=== PATIENT | female | born 1985 | race Caucasian/White ===

== ENCOUNTER 2018-01-09 09:41 | Emergency (ER) | payer SELFPAY ==
[2018-01-09] MEDS ORDERED: PANTOPRAZOLE 40 MG INJ ONE (10:20)
[2018-01-09 10:50] LABS: Absolute Lymphocytes (CBC) 1.4 K/uL (0.7-4.9); Absolute Monocytes 0.5 K/uL (0.1-1.3); Absolute Neutrophil 4.3 K/uL (1.8-8.0); Basophils % 0.1 % (0-1.3); Eosinophils % 1.5 % (0-4.4); Hematocrit 37.9 % (36.0-45.0); Lymphocytes % 22.1 % (15.3-44.8); MCH 30.7 pg (27.0-35.0); MCV 89.1 fL (80-100); MPV 10.5 fL (7.6-11.3); Monocytes % 8.1 % (3.3-12.3); RBC Red Blood Cell Count 4.25 M/uL (3.86-4.86)
[2018-01-09 11:02] LABS: ALT/SGPT 25 U/L (12-78); AST/SGOT 19 U/L (15-37); Albumin 3.7 g/dL (3.4-5.0); Alkaline Phosphatase 61 U/L (45-117); Amylase Level 43 U/L (25-115); BUN Blood Urea Nitrogen 18 mg/dL (7-18); Bicarbonate 30 mmol/L (21-32); Bilirubin Direct < 0.1 mg/dL (0-0.2); Bilirubin Total 0.3 mg/dL (0.2-1.0); Glucose Level 91 mg/dL (74-106); Lipase 94 U/L (73-393); Potassium 3.9 mmol/L (3.5-5.1); Protein, Total 7.3 g/dL (6.4-8.2); Sodium Level 142 mmol/L (136-145)
--- NOTE | 2018-01-09 11:09 | RAD REPORT ---
EXAM DESCRIPTION: US - Abdomen Exam Limited - 01/09/2018 10:31 am CLINICAL HISTORY: Abdominal pain. COMPARISON: None. FINDINGS: The gallbladder wall is not thickened. A gallstone is not seen. The biliary tree is normal caliber. IMPRESSION: Unremarkable gallbladder ultrasound.
--- NOTE | 2018-01-09 11:50 | EDPHYS ---
Physician Documentation [facility] Name: Al Verma Age: 32 yrs Sex: Female : 1985 Arrival Date: 01/09/2018 Time: 09:44 Bed 27 Private MD: None, None ED Physician Steve Escobar HPI: 01/09 10:59 This 32 yrs old Female presents to ER via Ambulatory with complaints of kb Abdominal Pain. 10:59 The patient presents with abdominal pain in the right upper quadrant. kb 11:32 Onset: The symptoms/episode began/occurred 4 day(s) ago. The symptoms radiate to the kb right shoulder. Associated signs and symptoms: none. The symptoms are described as burning, sharp. Modifying factors: The symptoms are alleviated by nothing, the symptoms are aggravated by food, laying flat. Severity of pain: At its worst the pain was moderate in the emergency department the pain is unchanged. The patient has not experienced similar symptoms in the past. The patient has not recently seen a physician. Pt states she started having RUQ pain that started Tuesday after eating sushi. States the pain started as epigastric pain that burned up through her chest like indigestion. The pain comes and goes, is worse after eating, when laying flat or when taking a deep breath. Also reports pain to right shoulder. . 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 - Social history:: Smoking status: Patient uses tobacco products, smokes one pack cigarettes per day. - Ebola Screening: : No symptoms or risks identified at this time. ROS: 11:47 Constitutional: Negative for fever, chills, and weight loss, ENT: Negative for injury, kb pain, and discharge, Neck: Negative for injury, pain, and swelling, Cardiovascular: Negative for chest pain, palpitations, and edema, Respiratory: Negative for shortness of breath, cough, wheezing, and pleuritic chest pain, Back: Negative for injury and pain, MS/Extremity: Negative for injury and deformity, Skin: Negative for injury, rash, and discoloration, Neuro: Negative for headache, weakness, numbness, tingling, and seizure. 11:47 Abdomen/GI: Positive for abdominal pain, Negative for nausea, vomiting, and diarrhea, constipation, abdominal cramps, abdominal distension, anorexia. Exam: 11:47 Constitutional: This is a well developed, well nourished patient who is awake, alert, kb and in no acute distress. Head/Face: Normocephalic, atraumatic. Chest/axilla: Normal chest wall appearance and motion. Nontender with no deformity. No lesions are appreciated. Cardiovascular: Regular rate and rhythm with a normal S1 and S2. No gallops, murmurs, or rubs. Normal PMI, no JVD. No pulse deficits. Respiratory: Lungs have equal breath sounds bilaterally, clear to auscultation and percussion. No rales, rhonchi or wheezes noted. No increased work of breathing, no retractions or nasal flaring. Back: No spinal tenderness. No costovertebral tenderness. Full range of motion. Skin: Warm, dry with normal turgor. Normal color with no rashes, no lesions, and no evidence of cellulitis. MS/ Extremity: Pulses equal, no cyanosis. Neurovascular intact. Full, normal range of motion. Neuro: Awake and alert, GCS 15, oriented to person, place, time, and situation. Cranial nerves II-XII grossly intact. Motor strength 5/5 in all extremities. Sensory grossly intact. Cerebellar exam normal. Normal gait. 11:47 Abdomen/GI: Inspection: abdomen appears normal, Bowel sounds: normal, in all quadrants, Palpation: soft, in all quadrants, nontender, in the left upper quadrant, right lower quadrant and left lower quadrant, moderate abdominal tenderness, in the right upper quadrant. Vital Signs: 09:53 BP 114 / 77; Pulse 90; Resp 16 S; Temp 98.3(O); Pulse Ox 99% on R/A; Weight 68.04 kg 7 (R); Height 5 ft. 10 in. (177.80 cm) (R); Pain 7/10; 11:33 BP 115 / 83; Pulse 86; Resp 19; Pulse Ox 99% on R/A; aj 09:53 Body Mass Index 21.52 (68.04 kg, 177.80 cm) jl7 MDM: 10:03 Patient medically screened. kb 11:47 Data reviewed: vital signs, nurses notes. Data interpreted: Pulse oximetry: on room air kb is 99 %. Interpretation: normal. 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 11:50 ED course: Pt reports symptoms resolved after protonix. . kb 01/09 10:10 Order name: Amylase, Serum; Complete Time: 11: kb 01/09 10:10 Order name: Basic Metabolic Panel; Complete Time: : kb 01/09 10:10 Order name: CBC with Diff; Complete Time: : kb 01/09 10:10 Order name: Hepatic Function; Complete Time: 11: kb 01/09 10:10 Order name: Lipase; Complete Time: 11: kb 01/09 11:18 Order name: Urine Dipstick--Ancillary (enter results) ag 01/09 10:10 Order name: Urine Test (obtain specimen); Complete Time: 10:34 kb 01/09 10:10 Order name: IV Saline Lock; Complete Time: 10:34 kb 01/09 10:10 Order name: Labs collected and sent; Complete Time: 10:34 kb 01/09 10:10 Order name: Urine Dipstick-Ancillary (obtain specimen); Complete Time: 10:34 kb 01/09 10:10 Order name: US Abdomen Limited; Complete Time: 11:10 kb 01/09 11:18 Order name: Urine --Ancillary (enter results) ag Administered Medications: 10:33 Drug: ProTONIX 40 mg Route: IVP; Site: right forearm; aj 11:23 Follow up: Response: No adverse reaction aj Disposition: 01/10 11:17 Co-signature as Attending Physician, Steve Escobar MD I agree with the assessment and angelique plan of care. Disposition: 01/09/18 11:49 Discharged to Home. Impression: Upper abdominal pain, unspecified. - Condition is Stable. - Discharge Instructions: Abdominal Pain, Adult, [id number]. - Prescriptions for Protonix 40 mg Oral Tablet - take 1 tablet by ORAL route once daily; 30 tablet. - Medication Reconciliation Form, Thank You Letter, Antibiotic Education, Prescription Opioid Use form. - Follow up: Emergency Department; When: As needed; Reason: Worsening of condition. Follow up: Private Physician; When: 2 - 3 days; Reason: Recheck today's complaints, Continuance of care, Re-evaluation by your physician. Signatures: Dispatcher [employer] EDAshley Nunez, JHON-C JHON-Kenya Haney, RN RN Steve Reno MD MD cha Leal, Jahala, RN RN jl7 Corrections: (The following items were deleted from the chart) 01/09 12:11 11:49 01/09/2018 11:49 Discharged to Home. Impression: Upper abdominal pain, aj unspecified. Condition is Stable. Forms are Medication Reconciliation Form, Thank You Letter, Antibiotic Education, Prescription Opioid Use. Follow up: Emergency Department; When: As needed; Reason: Worsening of condition. Follow up: Private Physician; When: 2 - 3 days; Reason: Recheck today's complaints, Continuance of care, Re-evaluation by your physician. kb
--- NOTE | 2018-01-09 11:50 | ER ---
Nurse's Notes [facility] Name: Al Verma Age: 32 yrs Sex: Female : 1985 Arrival Date: 01/09/2018 Time: 09:44 Bed 27 Private MD: None, None Diagnosis: Upper abdominal pain, unspecified Presentation: 01/09 09:47 Presenting complaint: Patient states: C/o RUQ pain x 3 days, ate sushi on Tuesday and it jl7 started hurting after that. Denies N/V, reports diarrhea on Tuesday morning, none since then. Pt noted to be drinking soda and eating donuts, instructed not to eat or drink anything else until the ERP says it's ok. Transition of care: patient was not received from another setting of care. Onset of symptoms was January 06, 2018. Risk Assessment: Do you want to hurt yourself or someone else? Patient reports no desire to harm self or others. Initial Sepsis Screen: Does the patient meet any 2 criteria? No. Patient's initial sepsis screen is negative. Does the patient have a suspected source of infection? No. Patient's initial sepsis screen is negative. Care prior to arrival: None. 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 - Social history:: Smoking status: Patient uses tobacco products, smokes one pack cigarettes per day. - Ebola Screening: : No symptoms or risks identified at this time. Screenin:33 Abuse screen: Denies threats or abuse. Denies injuries from another. Nutritional aj screening: No deficits noted. Tuberculosis screening: No symptoms or risk factors identified. Fall Risk None identified. Assessment: 10:14 General: Appears in no apparent distress. comfortable, Behavior is calm, cooperative, aj appropriate for age. Pain: Complains of pain in epigastric area and right upper quadrant. Neuro: Level of Consciousness is awake, alert, obeys commands, Oriented to person, place, time, situation, Appropriate for age. Respiratory: Airway is patent Respiratory effort is even, unlabored, Respiratory pattern is regular, symmetrical. GI: Abdomen is flat, Bowel sounds present X 4 quads. Abd is soft and non tender X 4 quads. Derm: Skin is intact, is healthy with good turgor, Skin is pink, warm \T\ dry. normal. 12:09 Reassessment: Patient appears in no apparent distress at this time. No changes from aj previously documented assessment. Patient and/or family updated on plan of care and expected duration. Pain level reassessed. Patient is alert, oriented x 3, equal unlabored respirations, skin warm/dry/pink. Patient states feeling better. Patient states symptoms have improved. Vital Signs: 09:53 BP 114 / 77; Pulse 90; Resp 16 S; Temp 98.3(O); Pulse Ox 99% on R/A; Weight 68.04 kg jl7 (R); Height 5 ft. 10 in. (177.80 cm) (R); Pain 7/10; 11:33 BP 115 / 83; Pulse 86; Resp 19; Pulse Ox 99% on R/A; aj 09:53 Body Mass Index 21.52 (68.04 kg, 177.80 cm) jl7 ED Course: 09:44 Patient arrived in ED. mr 09:44 None, None is Private Physician. mr 09:52 Triage completed. jl7 09:53 Arm band placed on right wrist. jl7 10:03 Ashley Snowden FNP-C [facility]. kb 10:03 Steve Escobar MD is Attending Physician. kb 10:14 Kenya Villavicencio, NICKIE is Primary Nurse. aj 10:27 Ultrasound completed. hr 10:31 US Abdomen Limited In Process Unspecified. EDMS 10:33 Patient has correct armband on for positive identification. aj 10:33 Inserted saline lock: 22 gauge in right forearm, using aseptic technique. Blood aj collected. 11:26 Urine --Ancillary (enter results) Sent. aj 12:09 No provider procedures requiring assistance completed. IV discontinued, intact, aj bleeding controlled, No redness/swelling at site. Pressure dressing applied. Administered Medications: 10:33 Drug: ProTONIX 40 mg Route: IVP; Site: right forearm; aj 11:23 Follow up: Response: No adverse reaction aj Outcome: 11:49 Discharge ordered by . xiomara 12:09 Discharged to home ambulatory, with family. aj 12:09 Condition: good 12:09 Discharge instructions given to patient, Instructed on discharge instructions, follow up and referral plans. medication usage, Demonstrated understanding of instructions, follow-up care, medications, Prescriptions given X 1. 12:11 Patient left the ED. aj Signatures: Dispatcher [employer] EDMS Ashley Snowden, CAREER TECHNICAL EDUCATION TEACHER-C CAREER TECHNICAL EDUCATION TEACHER-Kenya Haney, RN RN Althea Bauer mr Nirmala Almanza Jahala, RN RN jl7
[2018-01-09 12:35] LABS: Urine Blood NEGATIVE (NEG); Urine Glucose NEGATIVE (NEG); Urine Protein NEGATIVE (NEG); Urine Specific Gravity >1.030 (1.005-1.030); Urine pH 5.5 (5.0-7.0)
== END 2018-01-09 12:11 | disposition home or self-care (01) ==
LOC: ER 09:41
DX: R10.11 Right upper quadrant pain (principal); F17.210 Nicotine dependence, cigarettes, uncomplicated; F31.9 Bipolar disorder, unspecified; Z88.2 Allergy status to sulfonamides
CPT/HCPCS: 36415; 76705; 80048; 80076; 81003; 81025; 82150; 83690; 85025; 96374; 99284; C9113

== ENCOUNTER 2018-02-06 10:40 | Emergency (ER) | payer SELFPAY ==
[2018-02-06 11:43] LABS: Urine Blood NEGATIVE (NEG); Urine Glucose NEGATIVE (NEG); Urine Protein NEGATIVE (NEG); Urine Specific Gravity >1.030 (1.005-1.030)
[2018-02-06 11:56] LABS: ALT/SGPT 23 U/L (12-78); AST/SGOT 11 U/L (15-37); Albumin 3.9 g/dL (3.4-5.0); Alkaline Phosphatase 70 U/L (45-117); BUN Blood Urea Nitrogen 19 mg/dL (7-18); Bicarbonate 30 mmol/L (21-32); Bilirubin Direct 0.1 mg/dL (0-0.2); Bilirubin Total 0.4 mg/dL (0.2-1.0); Glucose Level 85 mg/dL (74-106); Lipase 118 U/L (73-393); Potassium 3.7 mmol/L (3.5-5.1); Protein, Total 7.5 g/dL (6.4-8.2); Sodium Level 142 mmol/L (136-145)
[2018-02-06 11:59] LABS: Absolute Lymphocytes (CBC) 1.3 K/uL (0.7-4.9); Absolute Monocytes 0.4 K/uL (0.1-1.3); Absolute Neutrophil 4.5 K/uL (1.8-8.0); Eosinophils % 0.1 % (0-4.4); Hematocrit 39.1 % (36.0-45.0); Lymphocytes % 20.6 % (15.3-44.8); MCH 30.6 pg (27.0-35.0); MCV 88.5 fL (80-100); MPV 10.2 fL (7.6-11.3); Monocytes % 6.7 % (3.3-12.3); RBC Red Blood Cell Count 4.42 M/uL (3.86-4.86)
--- NOTE | 2018-02-06 12:23 | RAD REPORT ---
EXAM DESCRIPTION: CT - Abdomen Pelvis W Contrast - 02/06/2018 12:11 pm CLINICAL HISTORY: Abdominal pain COMPARISON: None. TECHNIQUE: Biphasic, helical CT imaging of the abdomen and pelvis was performed following 100 ml non -ionic IV contrast. Oral contrast was given. All CT scans are performed using dose optimization technique as appropriate and may include automated exposure control or mA/KV adjustment according to patient size. FINDINGS: No suspicious findings in the lung bases. The liver, spleen, and pancreas show no suspicious findings. Gallbladder and biliary tree are also wi thout suspicious finding. Symmetric renal function is seen with no hydronephrosis or suspicious renal mass. Renal parenchymal e nhancement is slightly heterogeneous but no convincing evidence for pyelonephritis or other active re nal parenchymal process. Urinary bladder is contracted. No bladder calculus. Uterus is enlarged and lobulated. There are numerous small hyperdense areas within the myometrium. Mo st are 8-15 mm in size. Largest is lateral right fundus a 3.2 cm in size. Right ovary is unremarkable . In the left adnexa there is a 5.2 centimeter thin-walled cyst. This is probably a benign ovarian cy st but is relatively large. Mural nodule, septation calcification component. Stage component. Mild di latation of the left fallopian tube is suspected as well. No evidence for cyst rupture or hemorrhage. No dilated bowel loops or bowel wall thickening. Moderate stool volume is present throughout otherwis e unremarkable colon. No appendicitis findings. No free air, free fluid or inflammatory stranding. N o hernia, mass or bulky lymphadenopathy. No adrenal abnormality. No suspicious bony findings. IMPRESSION: A 5.2 centimeter thin-walled homogeneous fluid attenuation cyst or mass is present in th e left adnexa. Left fallopian tube appears to be mildly dilated as well. No cyst hemorrhage or rupt ure. The dominant mass is most likely a benign ovarian or paraovarian cyst. Size does warrant ongoing teresita toring. Fallopian tube dilatation is likely chronic. PID or other active process is unlikely. Enlarged bulky multi fibroid uterus. No acute GI or process. There is moderate stool volume filling the colon.
--- NOTE | 2018-02-06 13:04 | ER ---
Nurse's Notes [facility] Name: Al Verma Age: 32 yrs Sex: Female : 1985 Arrival Date: 02/06/2018 Time: 10:43 Bed 18 Private MD: None, None Diagnosis: Unspecified abdominal pain;Left ovarian cyst;Uterine fibroids Presentation: 02/06 10:58 Presenting complaint: Patient states: RUQ pain that began last night. Pt denies N/V/D. aa5 Pt states "I was seen here about a month ago and they checked my gallbladder but they couldn't find anything wrong". Transition of care: patient was not received from another setting of care. Onset of symptoms was January 2018. Risk Assessment: Do you want to hurt yourself or someone else? Patient reports no desire to harm self or others. Initial Sepsis Screen: Does the patient meet any 2 criteria? No. Patient's initial sepsis screen is negative. Does the patient have a suspected source of infection? No. Patient's initial sepsis screen is negative. Care prior to arrival: None. 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 - Social history:: Smoking status: Patient uses tobacco products, smokes one pack cigarettes per day. - Ebola Screening: : No symptoms or risks identified at this time. Screenin:36 Abuse screen: Denies threats or abuse. Denies injuries from another. Nutritional jl7 screening: No deficits noted. Tuberculosis screening: No symptoms or risk factors identified. Fall Risk IV access (20 points). Total Ma Fall Scale indicates No Risk (0-24 pts). Assessment: 11:15 General: Appears in no apparent distress. uncomfortable, Behavior is calm, cooperative, jl7 appropriate for age. Pain: Complains of pain in right upper quadrant Pain radiates to right mid back Pain currently is 6 out of 10 on a pain scale. Quality of pain is described as aching. Neuro: Level of Consciousness is awake, alert, obeys commands, Oriented to person, place, time, situation. Cardiovascular: Patient's skin is warm and dry. Respiratory: Airway is patent Respiratory effort is even, unlabored, Respiratory pattern is regular, symmetrical. GI: Abdomen is round non-distended, Bowel sounds present X 4 quads. Abd is soft X 4 quads Abdomen is tender to palpation in right upper quadrant and right lower quadrant. : No signs and/or symptoms were reported regarding the genitourinary system. EENT: No signs and/or symptoms were reported regarding the EENT system. Derm: Skin is pink, warm \\T\\ dry. Musculoskeletal: No signs and/or symptoms reported regarding the musculoskeletal system. 12:15 Reassessment: No changes from previously documented assessment. Patient and/or family jl7 updated on plan of care and expected duration. Pain level reassessed. Patient is alert, oriented x 3, equal unlabored respirations, skin warm/dry/pink. Vital Signs: 10:59 BP 121 / 74; Pulse 85; Resp 18 S; Temp 97.0(TE); Pulse Ox 98% on R/A; Weight 84.82 kg aa5 (R); Height 5 ft. 10 in. (177.80 cm) (R); Pain 6/10; 11:36 BP 101 / 66; Pulse 81; Resp 16; Pulse Ox 97% ; Pain 6/10; jl7 13:15 BP 113 / 70; Pulse 80; Resp 16 S; Pulse Ox 98% on R/A; jl7 10:59 Body Mass Index 26.83 (84.82 kg, 177.80 cm) aa5 ED Course: 10:43 Patient arrived in ED. mr 10:43 None, None is Private Physician. mr 10:59 Triage completed. aa5 10:59 Arm band placed on. aa5 11:02 Rigo Mcfarland NP is PHCP. pm1 11:02 John Velez MD is Attending Physician. pm1 11:10 Sukhdev Foster RN is Primary Nurse. jl7 11:20 Initial lab(s) drawn, by ma, sent to lab. Inserted saline lock: 22 gauge in right hj forearm, using aseptic technique. Blood collected. 11:28 Urine collected: clean catch specimen, clear. mh5 11:36 Patient has correct armband on for positive identification. Placed in gown. Bed in low jl7 position. Call light in reach. Side rails up X 1. Pulse ox on. NIBP on. Warm blanket given. 11:56 Radiology exam delayed due to lab results not completed at this time. (BUN/Creatinine). 12:10 CT completed. Patient tolerated procedure well. Patient moved to CT via wheelchair. jg6 Patient moved back from CT. 12:11 Abdomen In Process Unspecified. EDNJ 13:01 Rob Reid MD is Referral Physician. pm1 13:15 No provider procedures requiring assistance completed. IV discontinued, intact, jl7 bleeding controlled, No redness/swelling at site. Pressure dressing applied. Administered Medications: 13:05 Drug: Pepcid 10 mg Route: IVP; Site: right forearm; jl7 13:18 Follow up: Response: No adverse reaction; Pain is decreased jl7 13:06 Drug: GI Cocktail without - (Maalox Suspension 30 ml, Lidocaine Liquid 2 % 15 jl7 ml) Route: PO; 13:18 Follow up: Response: No adverse reaction; Pain is decreased jl7 Outcome: 13:03 Discharge ordered by . pm1 13:15 Discharged to home ambulatory. jl7 13:15 Condition: stable 13:15 Discharge instructions given to patient, family, Instructed on discharge instructions, follow up and referral plans. Demonstrated understanding of instructions, follow-up care. 13:19 Patient left the ED. jl7 Signatures: Dispatcher [employer] EDNJ Althea Palm AlfredoDanielle, RN RN chay5 Mey Sin Bryson Dunham, RN Rigo Mendez, DIRECTOR OF SUSTAINABLE DESIGN DIRECTOR OF SUSTAINABLE DESIGN [facility] Althea Campbell Sukhdev Mcelroy RN RN jl7 Kaitlin Hernandez [facility]
--- NOTE | 2018-02-06 13:04 | EDPHYS ---
Physician Documentation [facility] Name: Al Verma Age: 32 yrs Sex: Female : 1985 Arrival Date: 02/06/2018 Time: 10:43 Bed 18 Private MD: None, None ED Physician John Velez HPI: 02/06 12:00 This 32 yrs old Female presents to ER via Ambulatory with complaints of pm1 Abdominal Pain. 12:00 The patient presents with abdominal pain in the right upper quadrant. Onset: The pm1 symptoms/episode began/occurred yesterday. The symptoms do not radiate. Associated signs and symptoms: Pertinent negatives: nausea, vomiting, and diarrhea, chest pain, shortness of breath. The symptoms are described as achy. Modifying factors: The symptoms are alleviated by nothing, the symptoms are aggravated by food, onset after eating pizza last night. Severity of pain: in the emergency department the pain has improved. The patient has experienced similar episodes in the past, a few times, today's symptoms are similar, prior ER visit for abdominal pain last month. 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 - Social history:: Smoking status: Patient uses tobacco products, smokes one pack cigarettes per day. - Ebola Screening: : No symptoms or risks identified at this time. ROS: 12:00 Constitutional: Negative for fever, chills, and weight loss, Eyes: Negative for injury, pm1 pain, redness, and discharge, ENT: Negative for injury, pain, and discharge, Neck: Negative for injury, pain, and swelling, Cardiovascular: Negative for chest pain, palpitations, and edema, Respiratory: Negative for shortness of breath, cough, wheezing, and pleuritic chest pain, Back: Negative for injury and pain. 12:00 : Negative for injury, bleeding, discharge, and swelling, MS/Extremity: Negative for injury and deformity, Skin: Negative for injury, rash, and discoloration, Neuro: Negative for headache, weakness, numbness, tingling, and seizure. 12:00 Abdomen/GI: Positive for abdominal pain, Negative for nausea, vomiting, and diarrhea. Exam: 12:00 Constitutional: This is a well developed, well nourished patient who is awake, alert, pm1 and in no acute distress. Head/Face: Normocephalic, atraumatic. Eyes: Pupils equal round and reactive to light, extra-ocular motions intact. Lids and lashes normal. Conjunctiva and sclera are non-icteric and not injected. Cornea within normal limits. Periorbital areas with no swelling, redness, or edema. ENT: Nares patent. No nasal discharge, no septal abnormalities noted. Tympanic membranes are normal and external auditory canals are clear. Oropharynx with no redness, swelling, or masses, exudates, or evidence of obstruction, uvula midline. Mucous membranes moist. Neck: Trachea midline, no thyromegaly or masses palpated, and no cervical lymphadenopathy. Supple, full range of motion without nuchal rigidity, or vertebral point tenderness. No Meningismus. Chest/axilla: Normal chest wall appearance and motion. Nontender with no deformity. No lesions are appreciated. Cardiovascular: Regular rate and rhythm with a normal S1 and S2. No gallops, murmurs, or rubs. Normal PMI, no JVD. No pulse deficits. Respiratory: Lungs have equal breath sounds bilaterally, clear to auscultation and percussion. No rales, rhonchi or wheezes noted. No increased work of breathing, no retractions or nasal flaring. Back: No spinal tenderness. No costovertebral tenderness. Full range of motion. Skin: Warm, dry with normal turgor. Normal color with no rashes, no lesions, and no evidence of cellulitis. MS/ Extremity: Pulses equal, no cyanosis. Neurovascular intact. Full, normal range of motion. 12:00 Abdomen/GI: Inspection: abdomen appears normal, Bowel sounds: normal, Palpation: soft, mild abdominal tenderness, in the right upper quadrant, mass, is not appreciated, rebound tenderness, is not appreciated, Indicators: McBurney's point is not tender, Cesar's sign is negative, Rovsing's sign is negative, Obturator sign is negative, Psoas sign is negative. 12:00 Neuro: Orientation: is normal, Motor: is normal. Vital Signs: 10:59 BP 121 / 74; Pulse 85; Resp 18 S; Temp 97.0(TE); Pulse Ox 98% on R/A; Weight 84.82 kg aa5 (R); Height 5 ft. 10 in. (177.80 cm) (R); Pain 6/10; 11:36 BP 101 / 66; Pulse 81; Resp 16; Pulse Ox 97% ; Pain 6/10; jl7 13:15 BP 113 / 70; Pulse 80; Resp 16 S; Pulse Ox 98% on R/A; jl7 10:59 Body Mass Index 26.83 (84.82 kg, 177.80 cm) aa5 MDM: 11:03 Patient medically screened. pm1 13:00 Data reviewed: vital signs. Data interpreted: Pulse oximetry: on room air is 97 %. pm1 Interpretation: normal. Counseling: I had a detailed discussion with the patient and/or guardian regarding: the historical points, exam findings, and any diagnostic results supporting the discharge/admit diagnosis, lab results, radiology results, the need for outpatient follow up, an OB/Gyne specialist, uterine fibroid and left ovarian cyst, to return to the emergency department if symptoms worsen or persist or if there are any questions or concerns that arise at home. 13:30 ED course: Patient with improvement from GI cocktail, impression likely reflux disease pm1 or ulcer. Recommend follow up with GI. 02/06 11:02 Order name: Basic Metabolic Panel; Complete Time: 12:05 pm02/06 11:02 Order name: CBC with Diff; Complete Time: 12:05 pm1 02/06 11:02 Order name: Hepatic Function; Complete Time: 12:05 pm1 02/06 11:02 Order name: Lipase; Complete Time: 12:05 pm02/06 11:30 Order name: Urine Dipstick--Ancillary (enter results); Complete Time: 11:44 bd 02/06 11:30 Order name: Urine --Ancillary (enter results); Complete Time: 11:44 bd 02/06 11:02 Order name: Urine Test (obtain specimen); Complete Time: 11:24 pm02/06 11:02 Order name: IV Saline Lock; Complete Time: 11:24 pm1 02/06 11:02 Order name: Labs collected and sent; Complete Time: 11:24 pm02/06 11:02 Order name: Urine Dipstick-Ancillary (obtain specimen); Complete Time: 11:24 pm1 02/06 11:48 Order name: Abdomen ; Complete Time: 12:39 EDMS Administered Medications: 13:05 Drug: Pepcid 10 mg Route: IVP; Site: right forearm; jl7 13:18 Follow up: Response: No adverse reaction; Pain is decreased jl7 13:06 Drug: GI Cocktail without - (Maalox Suspension 30 ml, Lidocaine Liquid 2 % 15 jl7 ml) Route: PO; 13:18 Follow up: Response: No adverse reaction; Pain is decreased jl7 Disposition: 13:28 Co-signature as Attending Physician, John Velez MD. rn Disposition: 02/06/18 13:03 Discharged to Home. Impression: Unspecified abdominal pain, Left ovarian cyst, Uterine fibroids. - Condition is Stable. - Discharge Instructions: Abdominal Pain, Adult, Uterine Fibroids, Ovarian Cyst. - Medication Reconciliation Form, Thank You Letter, Antibiotic Education, Prescription Opioid Use form. - Follow up: Emergency Department; When: As needed; Reason: Worsening of condition. Follow up: Private Physician; When: 2 - 3 days; Reason: Recheck today's complaints, Continuance of care, Re-evaluation by your physician. Follow up: Rob Reid MD; When: 2 - 3 days; Reason: Recheck today's complaints, Continuance of care, Re-evaluation by your physician. - Problem is new. - Symptoms have improved. Signatures: Dispatcher [employer] EDND John Velez MD MD rn Calderon, Audri, RN RN aa5 Rigo Mcfarland NP MULTIPLE NEEDLE STITCHER pm1 Sukhdev Foster RN RN jl7 Corrections: (The following items were deleted from the chart) 11:48 11:31 Stone Protocol+CT.RAD.BRZ ordered. [facility] EDND 13:19 13:03 02/06/2018 13:03 Discharged to Home. Impression: Unspecified abdominal pain; Left jl7 ovarian cyst; Uterine fibroids. Condition is Stable. Forms are Medication Reconciliation Form, Thank You Letter, Antibiotic Education, Prescription Opioid Use. Follow up: Emergency Department; When: As needed; Reason: Worsening of condition. Follow up: Private Physician; When: 2 - 3 days; Reason: Recheck today's complaints, Continuance of care, Re-evaluation by your physician. Follow up: Rob Reid; When: 2 - 3 days; Reason: Recheck today's complaints, Continuance of care, Re-evaluation by your physician. Problem is new. Symptoms have improved. pm1
[2018-02-06] MEDS ORDERED: FAMOTIDINE 20 MG/2 ML VIAL IV ONE (13:12)
[2018-02-06] MEDS ORDERED: LIDOCAINE VISCOUS 2% SOLN 15 ML UDC ONE (13:12)
[2018-02-06] MEDS ORDERED: MAGNE/ALUM HYDROXD 30 ML UCUP ONE (13:12)
== END 2018-02-06 13:19 | disposition home or self-care (01) ==
LOC: ER 10:40
DX: N83.202 Unspecified ovarian cyst, left side (principal); D25.9 Leiomyoma of uterus, unspecified; F17.210 Nicotine dependence, cigarettes, uncomplicated; Z88.2 Allergy status to sulfonamides
CPT/HCPCS: 36415; 74177; 80048; 80076; 81003; 81025; 83690; 85025; 96374; 99284; Q9967

== ENCOUNTER 2018-11-02 13:29 | Emergency (ER) | payer SELFPAY ==
[2018-11-02] MEDS ORDERED: NA CHLORIDE 0.9% 1,000 ML ONE (14:28)
[2018-11-02] MEDS ORDERED: MAGNE/ALUM HYDROXD 30 ML UCUP ONE (14:28)
[2018-11-02] MEDS ORDERED: LIDOCAINE VISCOUS 2% SOLN 15 ML UDC ONE (14:28)
[2018-11-02] MEDS ORDERED: FAMOTIDINE 20 MG/2 ML VIAL IV ONE (14:28)
[2018-11-02 14:42] LABS: Urine Blood 1+ (NEG); Urine Glucose NEGATIVE (NEG); Urine Protein NEGATIVE (NEG); Urine Specific Gravity 1.025 (1.005-1.030); Urine pH 5.5 (5.0-7.0)
[2018-11-02 14:46] LABS: Absolute Lymphocytes (CBC) 1.3 K/uL (0.7-4.9); Absolute Monocytes 0.3 K/uL (0.1-1.3); Absolute Neutrophil 3.8 K/uL (1.8-8.0); Basophils % 0.2 % (0-1.3); Hematocrit 40.7 % (36.0-45.0); Lymphocytes % 23.8 % (15.3-44.8); MPV 10.1 fL (7.6-11.3); Monocytes % 5.9 % (3.3-12.3); RBC Red Blood Cell Count 4.57 M/uL (3.86-4.86)
[2018-11-02 15:27] LABS: ALT/SGPT 19 U/L (12-78); AST/SGOT 17 U/L (15-37); Albumin 4.1 g/dL (3.4-5.0); Alkaline Phosphatase 78 U/L (45-117); BUN Blood Urea Nitrogen 16 mg/dL (7-18); Bicarbonate 28 mmol/L (21-32); Bilirubin Direct 0.1 mg/dL (0-0.2); Bilirubin Total 0.6 mg/dL (0.2-1.0); Glucose Level 84 mg/dL (74-106); Lipase 77 U/L (73-393); Potassium 3.8 mmol/L (3.5-5.1); Protein, Total 7.7 g/dL (6.4-8.2); Sodium Level 142 mmol/L (136-145)
--- NOTE | 2018-11-02 15:37 | ER ---
Nurse's Notes [facility] Name: Al Verma Age: 33 yrs Sex: Female : 1985 Arrival Date: 11/02/2018 Time: 13:32 Bed 17 Private MD: Diagnosis: Abdominal tenderness;Functional dyspepsia;Urinary tract infection, site not specified Presentation: 11/02 13:35 Presenting complaint: Patient states: RUQ pain that started after patient ate. Patient aj states "I think it's my gallbladder again but I wasn't able to follow up. The last time they gave me a GI cocktail and it helped a lot.". Transition of care: patient was not received from another setting of care. Onset of symptoms was November 02, 2018. Risk Assessment: Do you want to hurt yourself or someone else? Patient reports no desire to harm self or others. Initial Sepsis Screen: Does the patient meet any 2 criteria? No. Patient's initial sepsis screen is negative. Does the patient have a suspected source of infection? No. Patient's initial sepsis screen is negative. Care prior to arrival: None. 13:35 Method Of Arrival: Ambulatory 13:35 Acuity: KRIS 3 aj Triage Assessment: 13:36 General: Appears in no apparent distress. comfortable, Behavior is calm, cooperative, aj appropriate for age. Pain: Complains of pain in epigastric area and right upper quadrant. Neuro: Level of Consciousness is awake, alert, obeys commands, Oriented to person, place, time, situation, Appropriate for age. Respiratory: Airway is patent Respiratory effort is even, unlabored, Respiratory pattern is regular, symmetrical. GI: Abdomen is flat. Derm: Skin is intact, is healthy with good turgor, Skin is pink, warm \\T\\ dry. normal. Historical: - Allergies: 13:36 Sulfa (Sulfonamide Antibiotics); aj - Home Meds: 13:36 oxcarbazepine Oral [Active]; aj - PMHx: 13:36 Bipolar disorder; aj - PSHx: 13:36 None; aj - Immunization history:: Adult Immunizations up to date. - Social history:: Smoking status: Patient/guardian denies using tobacco. - Ebola Screening: : Patient negative for fever greater than or equal to 101.5 degrees Fahrenheit, and additional compatible Ebola Virus Disease symptoms Patient denies exposure to infectious person Patient denies travel to an Ebola-affected area in the 21 days before illness onset No symptoms or risks identified at this time. - Family history:: not pertinent. Screenin:45 Abuse screen: Denies threats or abuse. Denies injuries from another. Nutritional bp screening: No deficits noted. Tuberculosis screening: No symptoms or risk factors identified. Fall Risk None identified. Assessment: 13:45 General: SEE TRIAGE NOTE. bp 13:45 GI: Bowel sounds present X 4 quads. Abd is soft and non tender. bp 16:01 Reassessment: PT D/C HOME AMBULATORY, DX WITH FUNCTIONAL DYSPEPSIA AND UTI. bp Vital Signs: 13:36 BP 126 / 71; Pulse 79; Resp 18; Temp 98.2; Pulse Ox 96% on R/A; Weight 89.81 kg; Height aj 5 ft. 10 in. (177.80 cm); 14:41 BP 94 / 69; Pulse 71; Resp 16; Temp 98.1(O); Pulse Ox 97% on R/A; mh5 15:29 BP 110 / 72; Pulse 70; Resp 16; Temp 97.9(O); Pulse Ox 97% on R/A; mh5 13:36 Body Mass Index 28.41 (89.81 kg, 177.80 cm) ED Course: 13:32 Patient arrived in ED. ds1 13:36 Triage completed. aj 13:36 Arm band placed on right wrist. Patient placed in an exam room. aj 13:46 Steve Escobar MD is Attending Physician. angelique 13:46 Patient has correct armband on for positive identification. Bed in low position. Call mh5 light in reach. Side rails up X 1. Warm blanket given. Pulse ox on. NIBP on. 13:52 Freedom Jeronimo, NICKIE is Primary Nurse. bp 14:30 Inserted saline lock: 22 gauge in right hand, using aseptic technique. Blood collected. bp 15:37 Mina Brooks MD is Referral Physician. angelique 16:02 No provider procedures requiring assistance completed. IV discontinued, intact, bp bleeding controlled, No redness/swelling at site. Pressure dressing applied. Administered Medications: 14:30 Drug: NS 0.9% 1000 ml Route: IV; Rate: 1 bolus; Site: right hand; bp 16:04 Follow up: IV Status: Completed infusion; IV Intake: 1000ml bp 14:30 Drug: GI Cocktail without - (Maalox Suspension 30 ml, Lidocaine Liquid 2 % 15 bp ml) Route: PO; 15:23 Follow up: Response: No adverse reaction bp 14:30 Drug: Pepcid 20 mg Route: IVP; Site: right hand; bp 15:22 Follow up: Response: No adverse reaction bp 15:30 Drug: Rocephin - (cefTRIAXone) 1 grams Route: IVPB; Infused Over: 30 mins; Site: right bp hand; 15:39 Follow up: IV Status: Completed infusion bp Intake: 16:04 IV: 1000ml; Total: 1000ml. bp Outcome: 15:37 Discharge ordered by . angelique 16:03 Discharged to home ambulatory, with family. bp 16:03 Condition: stable 16:03 Discharge instructions given to patient, Instructed on discharge instructions, follow up and referral plans. medication usage, Demonstrated understanding of instructions, follow-up care, medications, Prescriptions given X 4. 16:05 Patient left the ED. bp Signatures: Kenya Villavicencio, RN RN Steve Reno MD MD cha Sanford, Demi ds1 Althea Campbell 5 Freedom Jeronimo, RN RN bp
--- NOTE | 2018-11-02 15:37 | EDPHYS ---
Physician Documentation [facility] Name: Al Verma Age: 33 yrs Sex: Female : 1985 Arrival Date: 11/02/2018 Time: 13:32 Bed 17 Private MD: ED Physician Steve Escobar HPI: 11/02 14:03 This 33 yrs old Female presents to ER via Ambulatory with complaints of angelique Abdominal Pain. 14:03 The patient presents with abdominal pain in the upper abdomen. Onset: The angelique symptoms/episode began/occurred 1 day(s) ago. The symptoms do not radiate. Associated signs and symptoms: Pertinent positives: nausea. The symptoms are described as crampy. Modifying factors: The symptoms are alleviated by nothing, the symptoms are aggravated by food. Severity of pain: At its worst the pain was mild moderate in the emergency department the pain has improved mildly. The patient has experienced similar episodes in the past, a few times. Historical: - Allergies: 13:36 Sulfa (Sulfonamide Antibiotics); aj - Home Meds: 13:36 oxcarbazepine Oral [Active]; aj - PMHx: 13:36 Bipolar disorder; aj - PSHx: 13:36 None; aj - Immunization history:: Adult Immunizations up to date. - Social history:: Smoking status: Patient/guardian denies using tobacco. - Ebola Screening: : Patient negative for fever greater than or equal to 101.5 degrees Fahrenheit, and additional compatible Ebola Virus Disease symptoms Patient denies exposure to infectious person Patient denies travel to an Ebola-affected area in the 21 days before illness onset No symptoms or risks identified at this time. - Family history:: not pertinent. ROS: 14:03 Constitutional: Negative for fever, chills, and weight loss, Eyes: Negative for injury, angelique pain, redness, and discharge, ENT: Negative for injury, pain, and discharge, Neck: Negative for injury, pain, and swelling, Cardiovascular: Negative for chest pain, palpitations, and edema, Respiratory: Negative for shortness of breath, cough, wheezing, and pleuritic chest pain, Back: Negative for injury and pain, : Negative for injury, bleeding, discharge, and swelling, MS/Extremity: Negative for injury and deformity, Skin: Negative for injury, rash, and discoloration, Neuro: Negative for headache, weakness, numbness, tingling, and seizure, Psych: Negative for depression, anxiety, suicide ideation, homicidal ideation, and hallucinations, Allergy/Immunology: Negative for hives, rash, and allergies, Endocrine: Negative for neck swelling, polydipsia, polyuria, polyphagia, and marked weight changes, Hematologic/Lymphatic: Negative for swollen nodes, abnormal bleeding, and unusual bruising. 14:03 Abdomen/GI: Positive for abdominal pain, of the right upper quadrant. Exam: 14:03 Constitutional: This is a well developed, well nourished patient who is awake, alert, angelique and in no acute distress. Head/Face: Normocephalic, atraumatic. Eyes: Pupils equal round and reactive to light, extra-ocular motions intact. Lids and lashes normal. Conjunctiva and sclera are non-icteric and not injected. Cornea within normal limits. Periorbital areas with no swelling, redness, or edema. ENT: Nares patent. No nasal discharge, no septal abnormalities noted. Tympanic membranes are normal and external auditory canals are clear. Oropharynx with no redness, swelling, or masses, exudates, or evidence of obstruction, uvula midline. Mucous membranes moist. Neck: Trachea midline, no thyromegaly or masses palpated, and no cervical lymphadenopathy. Supple, full range of motion without nuchal rigidity, or vertebral point tenderness. No Meningismus. Chest/axilla: Normal chest wall appearance and motion. Nontender with no deformity. No lesions are appreciated. Cardiovascular: Regular rate and rhythm with a normal S1 and S2. No gallops, murmurs, or rubs. Normal PMI, no JVD. No pulse deficits. Respiratory: Lungs have equal breath sounds bilaterally, clear to auscultation and percussion. No rales, rhonchi or wheezes noted. No increased work of breathing, no retractions or nasal flaring. Back: No spinal tenderness. No costovertebral tenderness. Full range of motion. Skin: Warm, dry with normal turgor. Normal color with no rashes, no lesions, and no evidence of cellulitis. MS/ Extremity: Pulses equal, no cyanosis. Neurovascular intact. Full, normal range of motion. Neuro: Awake and alert, GCS 15, oriented to person, place, time, and situation. Cranial nerves II-XII grossly intact. Motor strength 5/5 in all extremities. Sensory grossly intact. Cerebellar exam normal. Normal gait. Psych: Awake, alert, with orientation to person, place and time. Behavior, mood, and affect are within normal limits. 14:03 Abdomen/GI: Inspection: abdomen appears normal, Bowel sounds: normal, Palpation: mild abdominal tenderness, in the epigastric area and right upper quadrant, Rectal exam: rectal tone Liver: no appreciated palpable abnormalities, Hernia: not appreciated. Vital Signs: 13:36 BP 126 / 71; Pulse 79; Resp 18; Temp 98.2; Pulse Ox 96% on R/A; Weight 89.81 kg; Height aj 5 ft. 10 in. (177.80 cm); 14:41 BP 94 / 69; Pulse 71; Resp 16; Temp 98.1(O); Pulse Ox 97% on R/A; mh5 15:29 BP 110 / 72; Pulse 70; Resp 16; Temp 97.9(O); Pulse Ox 97% on R/A; mh5 13:36 Body Mass Index 28.41 (89.81 kg, 177.80 cm) MDM: 13:46 Patient medically screened. [facility] 14:05 Data reviewed: vital signs, nurses notes, lab test result(s). [facility] 11/02 14:02 Order name: Basic Metabolic Panel; Complete Time: 15:36 [facility] [place] 11/02 14:02 Order name: CBC with Diff; Complete Time: 15:13 [facility] [place] 11/02 14:02 Order name: Creatinine for Radiology; Complete Time: 15:36 [facility] [place] 11/02 14:02 Order name: Hepatic Function; Complete Time: 15:36 [facility] [place] 11/02 14:02 Order name: Lipase; Complete Time: 15:36 [facility] [place] 11/02 14:02 Order name: Urine Culture [facility] 11/02 14:02 Order name: IV Saline Lock; Complete Time: 14:43 [facility] 11/02 14:02 Order name: Labs collected and sent; Complete Time: 14:43 [facility] [place] 11/02 14:37 Order name: Urine Dipstick--Ancillary (enter results); Complete Time: 15:13 11/02 14:37 Order name: Urine --Ancillary (enter results); Complete Time: 15:13 11/02 14:02 Order name: Urine Dipstick-Ancillary (obtain specimen); Complete Time: 14:43 [facility] 11/02 14:02 Order name: Urine Test (obtain specimen); Complete Time: 14:43 [facility] [place] Administered Medications: 14:30 Drug: NS 0.9% 1000 ml Route: IV; Rate: 1 bolus; Site: right hand; bp 16:04 Follow up: IV Status: Completed infusion; IV Intake: 1000ml bp 14:30 Drug: GI Cocktail without - (Maalox Suspension 30 ml, Lidocaine Liquid 2 % 15 bp ml) Route: PO; 15:23 Follow up: Response: No adverse reaction bp 14:30 Drug: Pepcid 20 mg Route: IVP; Site: right hand; bp 15:22 Follow up: Response: No adverse reaction bp 15:30 Drug: Rocephin - (cefTRIAXone) 1 grams Route: IVPB; Infused Over: 30 mins; Site: right bp hand; 15:39 Follow up: IV Status: Completed infusion bp Disposition: 11/02/18 15:37 Discharged to Home. Impression: Abdominal tenderness, Functional dyspepsia, Urinary tract infection, site not specified. - Condition is Stable. - Discharge Instructions: Abdominal Pain, Adult, Dysuria, Indigestion, Abdominal Pain, Adult, [id number]. - Prescriptions for Bentyl 20 mg Oral Tablet - take 1 tablet by ORAL route every 6 hours As needed; 20 tablet. Pepcid 20 mg Oral Tablet - take 1 tablet by ORAL route every 12 hours for 10 days; 20 tablet. Zofran 4 mg Oral Tablet - take 1 tablet by ORAL route every 12 hours As needed; 20 tablet. Cipro 250 mg Oral Tablet - take 1 tablet by ORAL route every 12 hours; 14 tablet. - Medication Reconciliation Form, Thank You Letter, Antibiotic Education, Prescription Opioid Use, Work release form form. - Follow up: Private Physician; When: 2 - 3 days; Reason: Recheck today's complaints, Continuance of care, Re-evaluation by your physician. Follow up: Mina Brooks MD; When: 2 - 3 days; Reason: Recheck today's complaints, Re-evaluation by your physician. - Problem is new. - Symptoms have improved. Signatures: Dispatcher [employer] Kenya Ornelas RN RN aj Anderson, Corey, MD MD cha Peltier, Brian, RN RN bp Corrections: (The following items were deleted from the chart) 15:37 15:37 11/02/2018 15:37 Discharged to Home. Impression: Abdominal tenderness; Functional angelique dyspepsia; Urinary tract infection, site not specified. Condition is Stable. Discharge Instructions: Abdominal Pain, Adult, Indigestion, Abdominal Pain, Adult, [id number], Dysuria. Prescriptions for Bentyl 20 mg Oral Tablet - take 1 tablet by ORAL route every 6 hours As needed; 20 tablet, Pepcid 20 mg Oral Tablet - take 1 tablet by ORAL route every 12 hours for 10 days; 20 tablet, Zofran 4 mg Oral Tablet - take 1 tablet by ORAL route every 12 hours As needed; 20 tablet, Cipro 250 mg Oral Tablet - take 1 tablet by ORAL route every 12 hours; 14 tablet. and Forms are Medication Reconciliation Form, Thank You Letter, Antibiotic Education, Prescription Opioid Use. Follow up: Private Physician; When: 2 - 3 days; Reason: Recheck today's complaints, Continuance of care, Re-evaluation by your physician. Problem is new. Symptoms have improved. [facility] 16:05 15:37 11/02/2018 15:37 Discharged to Home. Impression: Abdominal tenderness; Functional bp dyspepsia; Urinary tract infection, site not specified. Condition is Stable. Discharge Instructions: Abdominal Pain, Adult, Indigestion, Abdominal Pain, Adult, [id number], Dysuria. Prescriptions for Bentyl 20 mg Oral Tablet - take 1 tablet by ORAL route every 6 hours As needed; 20 tablet, Pepcid 20 mg Oral Tablet - take 1 tablet by ORAL route every 12 hours for 10 days; 20 tablet, Zofran 4 mg Oral Tablet - take 1 tablet by ORAL route every 12 hours As needed; 20 tablet, Cipro 250 mg Oral Tablet - take 1 tablet by ORAL route every 12 hours; 14 tablet. and Forms are Medication Reconciliation Form, Thank You Letter, Antibiotic Education, Prescription Opioid Use. Follow up: Private Physician; When: 2 - 3 days; Reason: Recheck today's complaints, Continuance of care, Re-evaluation by your physician. Follow up: Mina Brooks; When: 2 - 3 days; Reason: Recheck today's complaints, Re-evaluation by your physician. Problem is new. Symptoms have improved. [facility]
[2018-11-02] MEDS ORDERED: CEFTRIAXONE/SWI 1gm 1 GM/10 ML SYR ONE (15:40)
== END 2018-11-02 16:05 | disposition home or self-care (01) ==
LOC: ER 13:29
DX: K30 Functional dyspepsia (principal); N39.0 Urinary tract infection, site not specified; F31.9 Bipolar disorder, unspecified; Z88.2 Allergy status to sulfonamides
CPT/HCPCS: 36415; 80048; 80076; 81003; 81025; 83690; 85025; 87077; 87086; 87088; 87186; 96361; 96374; 96375; 99284; J0696; J7030

== ENCOUNTER 2019-04-03 13:21 | Emergency (ER) | payer SELFPAY ==
--- NOTE | 2019-04-03 14:29 | EDPHYS ---
Physician Documentation [facility] Name: Al Verma Age: 33 yrs Sex: Female : 1985 Arrival Date: 04/03/2019 Time: 13:25 Bed 11 Private MD: ED Physician Shawn Blackwell HPI: 04/03 14:22 This 33 yrs old Female presents to ER via Ambulatory with complaints of kb Dizziness, Shortness Of Breath, Urinary Problem, Lip sore, fatigue. 14:22 The patient presents with lightheadedness. Onset: The symptoms/episode began/occurred kb just prior to arrival. Context: occurred at work, occurred while the patient was working. Modifying factors: The symptoms are alleviated by eating, the symptoms are aggravated by nothing. Associated signs and symptoms: The patient has no apparent associated signs or symptoms. Severity of symptoms: At their worst the symptoms were moderate in the emergency department the symptoms have resolved. Patient's baseline: Neuro: alert and fully oriented, Motor: no deficits, Ambulation: walks without assistance, Speech: normal. The patient has not experienced similar symptoms in the past. Pt reports she has had 2 cold sores over the last month so she looked on web md and it said she may need an antibiotic to treat an underlying infection causing the cold sores. Reports she had a z-pack that her mother gave her so she started that this morning. Took first dose, went to work, ate 3 breakfast tacos and had some coffee. States she started feeling lightheaded, dizzy and was breathing fast at about 1030. She was taken to the office by safety and given a honey bun to eat. States she started feeling a little better, but still groggy so she was brought here. Ate a breakfast taco in the lobby and is feeling better. Pt reports frequent urination and family history of diabetes. . 14:26 The patient has not recently seen a physician. kb Historical: - Allergies: 13:32 Sulfa (Sulfonamide Antibiotics); hb - Home Meds: 13:32 oxcarbazepine Oral [Active]; hb - PMHx: 13:32 Bipolar disorder; hb - PSHx: 13:32 None; hb - Immunization history:: Adult Immunizations up to date. - Social history:: Smoking status: Patient uses tobacco products, smokes one pack cigarettes per day. - Ebola Screening: : No symptoms or risks identified at this time. ROS: 14:22 Constitutional: Negative for fever, chills, and weight loss, ENT: Negative for injury, kb pain, and discharge, Neck: Negative for injury, pain, and swelling, Cardiovascular: Negative for chest pain, palpitations, and edema, Respiratory: Negative for shortness of breath, cough, wheezing, and pleuritic chest pain, Abdomen/GI: Negative for abdominal pain, nausea, vomiting, diarrhea, and constipation, Back: Negative for injury and pain, MS/Extremity: Negative for injury and deformity, Skin: Negative for injury, rash, and discoloration. Reports cold sore Neuro: Negative for headache, weakness, numbness, tingling, and seizure. Exam: 14:22 Constitutional: This is a well developed, well nourished patient who is awake, alert, kb and in no acute distress. Head/Face: Normocephalic, atraumatic. ENT: Nares patent. No nasal discharge, no septal abnormalities noted. Tympanic membranes are normal and external auditory canals are clear. Oropharynx with no redness, swelling, or masses, exudates, or evidence of obstruction, uvula midline. Mucous membranes moist. Neck: Trachea midline, no thyromegaly or masses palpated, and no cervical lymphadenopathy. Supple, full range of motion without nuchal rigidity, or vertebral point tenderness. No Meningismus. Chest/axilla: Normal chest wall appearance and motion. Nontender with no deformity. No lesions are appreciated. Cardiovascular: Regular rate and rhythm with a normal S1 and S2. No gallops, murmurs, or rubs. Normal PMI, no JVD. No pulse deficits. Respiratory: Lungs have equal breath sounds bilaterally, clear to auscultation and percussion. No rales, rhonchi or wheezes noted. No increased work of breathing, no retractions or nasal flaring. Abdomen/GI: Soft, non-tender, with normal bowel sounds. No distension or tympany. No guarding or rebound. No evidence of tenderness throughout. Back: No spinal tenderness. No costovertebral tenderness. Full range of motion. MS/ Extremity: Pulses equal, no cyanosis. Neurovascular intact. Full, normal range of motion. Neuro: Awake and alert, GCS 15, oriented to person, place, time, and situation. Cranial nerves II-XII grossly intact. Motor strength 5/5 in all extremities. Sensory grossly intact. Cerebellar exam normal. Normal gait. 14:22 Skin: cold sore, bottom left lip. Vital Signs: 13:32 BP 124 / 86; Pulse 81; Resp 16; Temp 97.5; Pulse Ox 99% on R/A; Weight 72.57 kg; Height hb 5 ft. 10 in. (177.80 cm); Pain 6/10; 13:32 Body Mass Index 22.96 (72.57 kg, 177.80 cm) hb MDM: 13:38 Patient medically screened. kb 14:19 Data reviewed: vital signs, nurses notes. Data interpreted: Pulse oximetry: on room air kb is 99 %. Interpretation: normal. Counseling: I had a detailed discussion with the patient and/or guardian regarding: the historical points, exam findings, and any diagnostic results supporting the discharge/admit diagnosis, lab results, the need for outpatient follow up, a family practitioner, to return to the emergency department if symptoms worsen or persist or if there are any questions or concerns that arise at home. ED course: Pt educated on possible hypoglycemic episode causing lightheadedness/dizziness based on given history and BGL of 98 now. Pt educated on smaller, more frequent meals. Educated not to take antibiotics unless prescribed to her. Pt has no signs of bacterial infection that warrants continuation of z-pack. . 14:27 ED course: PT educated to follow up with PCP for Hemoglobin A1C check. Also discussed kb cold sores with pt. Educated that antibiotics will not cure them. Pt reports she started this job in February and has had 2 outbreaks since then. Educated that the stress of a new job could be the trigger. . 04/03 14:18 Order name: Urine Dipstick--Ancillary (enter results); Complete Time: 14:45 bd 04/03 14:18 Order name: Urine --Ancillary (enter results); Complete Time: 14:45 bd 04/03 13:56 Order name: Urine Dipstick-Ancillary (obtain specimen); Complete Time: 14:13 kb 04/03 13:56 Order name: Blood Glucose Level; Complete Time: 14:13 kb 04/03 14:21 Order name: Glucose, Ancillary Testing; Complete Time: 14:29 EDMS Administered Medications: No medications were administered Point of Care Testing: Blood Glucose: 14:10 Blood Glucose: 98 mg/dL; hb Ranges: Critical Glucose Levels:Adult <50 mg/dl or >400 mg/dl <40 mg/dl or >180 mg/dl Disposition: 04/04 07:19 Co-signature as Attending Physician, Shawn Blackwell MD I agree with the assessment and kdr plan of care. Disposition: 04/03/19 14:28 Discharged to Home. Impression: Herpesviral [herpes simplex] infections, Dizziness and giddiness. - Condition is Stable. - Discharge Instructions: Hypoglycemia, [id number], Dizziness, Cpsl-[id number], Cold Sore, [id number]. - Medication Reconciliation Form, Thank You Letter, Antibiotic Education, Prescription Opioid Use, Work release form form. - Follow up: Emergency Department; When: As needed; Reason: Worsening of condition. Follow up: Private Physician; When: 2 - 3 days; Reason: Recheck today's complaints, Continuance of care, Re-evaluation by your physician. Signatures: Dispatcher [employer] EDAshley Nunez, SHEMAR FERREIRA-Shawn Melton MD MD [facility] Ira Jaime RN RN ss Brittany Ortega RN RN Corrections: (The following items were deleted from the chart) 04/03 14:22 14:22 Constitutional: Negative for fever, chills, and weight loss, ENT: Negative for kb injury, pain, and discharge, Neck: Negative for injury, pain, and swelling, Cardiovascular: Negative for chest pain, palpitations, and edema, Respiratory: Negative for shortness of breath, cough, wheezing, and pleuritic chest pain, Abdomen/GI: Negative for abdominal pain, nausea, vomiting, diarrhea, and constipation, Back: Negative for injury and pain, MS/Extremity: Negative for injury and deformity, Skin: Negative for injury, rash, and discoloration, Neuro: Negative for headache, weakness, numbness, tingling, and seizure, kb 14:26 14:22 Pt reports she has had 2 cold sores over the last month so she looked on web md [place] and it said she may need an antibiotic to treat an underlying infection causing the cold sores. Reports she had a z-pack that her mother gave her so she started that this morning. Took first dose, went to work, ate 3 breakfast tacos and had some coffee. States she started feeling lightheaded, dizzy and was breathing fast at about 1030. She was taken to the office by safety and given a honey bun to eat. States she started feeling a little better, but still groggy so she was brought here. Ate a breakfast taco in the lobby and is feeling better. . kb 14:57 14:28 04/03/2019 14:28 Discharged to Home. Impression: Herpesviral [herpes simplex] ss infections; Dizziness and giddiness. Condition is Stable. Forms are Medication Reconciliation Form, Thank You Letter, Antibiotic Education, Prescription Opioid Use. Follow up: Emergency Department; When: As needed; Reason: Worsening of condition. Follow up: Private Physician; When: 2 - 3 days; Reason: Recheck today's complaints, Continuance of care, Re-evaluation by your physician. kb
--- NOTE | 2019-04-03 14:29 | ER ---
Nurse's Notes [facility] Name: Al Verma Age: 33 yrs Sex: Female : 1985 Arrival Date: 04/03/2019 Time: 13:25 Bed 11 Private MD: Diagnosis: Herpesviral [herpes simplex] infections;Dizziness and giddiness Presentation: 04/03 13:28 Presenting complaint: Cold sore x 2 days. Started self medicating with Zithromax hb yesterday. 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 Transition of care: patient was not received from another setting of care. Onset of symptoms was April 02, 2019. Risk Assessment: Do you want to hurt yourself or someone else? Patient reports no desire to harm self or others. Care prior to arrival: None. 13:28 Method Of Arrival: Ambulatory 13:28 Acuity: KRIS 4 hb 13:30 Initial Sepsis Screen: Does the patient meet any 2 criteria? No. Patient's initial hb sepsis screen is negative. Does the patient have a suspected source of infection? No. Patient's initial sepsis screen is negative. Triage Assessment: 13:30 General: Appears in no apparent distress. Behavior is calm, cooperative. Pain: hb Complains of pain in lower lip Pain currently is 6 out of 10 on a pain scale. Neuro: Level of Consciousness is awake, alert, obeys commands, Oriented to person, place, time, situation. Cardiovascular: Capillary refill < 3 seconds. Respiratory: Reports Airway is patent Respiratory effort is even, unlabored, Respiratory pattern is regular, symmetrical. Historical: - Allergies: 13:32 Sulfa (Sulfonamide Antibiotics); hb - Home Meds: 13:32 oxcarbazepine Oral [Active]; hb - PMHx: 13:32 Bipolar disorder; hb - PSHx: 13:32 None; hb - Immunization history:: Adult Immunizations up to date. - Social history:: Smoking status: Patient uses tobacco products, smokes one pack cigarettes per day. - Ebola Screening: : No symptoms or risks identified at this time. Screenin:30 Abuse screen: Denies threats or abuse. Denies injuries from another. Nutritional hb screening: No deficits noted. Tuberculosis screening: No symptoms or risk factors identified. Fall Risk None identified. Assessment: 13:30 General: see triage assessment. hb Vital Signs: 13:32 BP 124 / 86; Pulse 81; Resp 16; Temp 97.5; Pulse Ox 99% on R/A; Weight 72.57 kg; Height hb 5 ft. 10 in. (177.80 cm); Pain 6/10; 13:32 Body Mass Index 22.96 (72.57 kg, 177.80 cm) hb ED Course: 13:25 Patient arrived in ED. mr 13:32 Triage completed. hb 13:32 Arm band placed on. hb 13:34 Ashley Snowden FNP-C is PHCP. kb 13:34 Shawn Blackwell MD is Attending Physician. kb 13:40 Patient has correct armband on for positive identification. Call light in reach. hb 14:13 Brittany Ortega, RN is Primary Nurse. hb 14:55 No provider procedures requiring assistance completed. Patient did not have IV access ss during this emergency room visit. Administered Medications: No medications were administered Point of Care Testing: Blood Glucose: 14:10 Blood Glucose: 98 mg/dL; hb Ranges: Outcome: 14:28 Discharge ordered by MD. kb 14:55 Discharged to home ambulatory. ss 14:55 Condition: good 14:55 Discharge instructions given to patient, Instructed on discharge instructions, follow up and referral plans. Demonstrated understanding of instructions, follow-up care. 14:57 Patient left the ED. ss Signatures: Ashley Snowden FNP-C FNP-Ckb Dania PlamIra RN RN ss Brittany Ortega, RN RN hb
[2019-04-03 14:42] LABS: Urine Blood NEGATIVE (NEG); Urine Glucose NEGATIVE (NEG); Urine Protein NEGATIVE (NEG); Urine Specific Gravity >1.030 (1.005-1.030)
[2019-04-03 15:01] VITALS: BP 124/86; TEMP 97.5; O2SAT 99
== END 2019-04-03 14:57 | disposition home or self-care (01) ==
LOC: ER 13:21
DX: B00.9 Herpesviral infection, unspecified (principal); F31.9 Bipolar disorder, unspecified; F17.210 Nicotine dependence, cigarettes, uncomplicated; Z88.2 Allergy status to sulfonamides
CPT/HCPCS: 81003; 81025; 82947; 99282

== ENCOUNTER 2019-04-13 21:31 | Emergency (ER) | payer SELFPAY ==
--- NOTE | 2019-04-13 22:13 | EDPHYS ---
Physician Documentation [facility] Name: Al Verma Age: 33 yrs Sex: Female : 1985 Arrival Date: 04/13/2019 Time: 21:32 Bed 25 Private MD: ED Physician Juan Roy HPI: 04/14 06:46 This 33 yrs old Female presents to ER via Ambulatory with complaints of tw4 Weakness, Headache, Low Blood Sugar. 06:46 The patient or guardian reports hypoglycemia. Onset: The symptoms/episode tw4 began/occurred today. Associated signs and symptoms: Pertinent positives: nausea, headache , generalized weakness. The patient has not experienced similar symptoms in the past. 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 - Social history:: Smoking status: Patient uses tobacco products, smokes one pack cigarettes per day. - Ebola Screening: : No symptoms or risks identified at this time. ROS: 04/14 06:46 Constitutional: Negative for fever, chills, and weight loss, Eyes: Negative for injury, tw4 pain, redness, and discharge, Cardiovascular: Negative for chest pain, palpitations, and edema, Respiratory: Negative for shortness of breath, cough, wheezing, and pleuritic chest pain. Back: Negative for injury and pain, MS/Extremity: Negative for injury and deformity, Skin: Negative for injury, rash, and discoloration. Abdomen/GI: Positive for nausea, Negative for abdominal pain, nausea and vomiting, nausea, vomiting, and diarrhea. Neuro: Positive for weakness. Exam: 06:46 Constitutional: This is a well developed, well nourished patient who is awake, alert, tw4 and in no acute distress. Head/Face: Normocephalic, atraumatic. Chest/axilla: Normal chest wall appearance and motion. Nontender with no deformity. No lesions are appreciated. Cardiovascular: Regular rate and rhythm with a normal S1 and S2. No gallops, murmurs, or rubs. Normal PMI, no JVD. No pulse deficits. Respiratory: Lungs have equal breath sounds bilaterally, clear to auscultation and percussion. No rales, rhonchi or wheezes noted. No increased work of breathing, no retractions or nasal flaring. Abdomen/GI: Soft, non-tender, with normal bowel sounds. No distension or tympany. No guarding or rebound. No evidence of tenderness throughout. Back: No spinal tenderness. No costovertebral tenderness. Full range of motion. MS/ Extremity: Pulses equal, no cyanosis. Neurovascular intact. Full, normal range of motion. Neuro: Awake and alert, GCS 15, oriented to person, place, time, and situation. Cranial nerves II-XII grossly intact. Motor strength 5/5 in all extremities. Sensory grossly intact. Cerebellar exam normal. Normal gait. Vital Signs: 04/13 21:49 BP 119 / 75; Pulse 75; Resp 16; Temp 98.6; Pulse Ox 98% ; Weight 86.18 kg; Height 5 ft. rv 10 in. (177.80 cm); Pain 0/10; 21:49 Body Mass Index 27.26 (86.18 kg, 177.80 cm) rv MDM: 21:47 Patient medically screened. tw4 04/14 06:46 Data reviewed: vital signs, nurses notes. Counseling: I had a detailed discussion with [facility] the patient and/or guardian regarding: the historical points, exam findings, and any diagnostic results supporting the discharge/admit diagnosis, lab results. 04/13 21:52 Order name: Glucose, Ancillary Testing EDMS Administered Medications: No medications were administered Disposition: 04/13/19 22:12 Discharged to Home. Impression: Hypoglycemia, unspecified. - Condition is Stable. - Discharge Instructions: Hypoglycemia. - Medication Reconciliation Form, Thank You Letter, Antibiotic Education, Prescription Opioid Use, Work release form form. - Follow up: Private Physician; When: Upon discharge from the Emergency Department; Reason: Recheck today's complaints, Continuance of care. - Problem is new. - Symptoms have improved. Signatures: Dispatcher [employer] EDMS Juan Roy MD MD tw4 Jameel Velasquez RN RN rv Corrections: (The following items were deleted from the chart) 04/13 22:25 22:12 04/13/2019 22:12 Discharged to Home. Impression: Hypoglycemia, unspecified. rv Condition is Stable. Forms are Medication Reconciliation Form, Thank You Letter, Antibiotic Education, Prescription Opioid Use. Follow up: Private Physician; When: Upon discharge from the Emergency Department; Reason: Recheck today's complaints, Continuance of care. Problem is new. Symptoms have improved. tw4
--- NOTE | 2019-04-13 22:13 | ER ---
Nurse's Notes [facility] Name: Al Verma Age: 33 yrs Sex: Female : 1985 Arrival Date: 04/13/2019 Time: 21:32 Bed 25 Private MD: Diagnosis: Hypoglycemia, unspecified Presentation: 04/13 21:44 Presenting complaint: Patient states: I was here last week because I had an episode of rv hypoglycemia. I was discharged and instructed me to follow up with the clinic at [place] but I don't have insurance. today at work, it happened again. Transition of care: patient was not received from another setting of care. 21:44 Method Of Arrival: Ambulatory rv 21:48 Onset of symptoms is unknown. Risk Assessment: Do you want to hurt yourself or someone rv else? Patient reports no desire to harm self or others. Initial Sepsis Screen: Does the patient meet any 2 criteria? No. Patient's initial sepsis screen is negative. Does the patient have a suspected source of infection? No. Patient's initial sepsis screen is negative. Care prior to arrival: None. 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 - Social history:: Smoking status: Patient uses tobacco products, smokes one pack cigarettes per day. - Ebola Screening: : No symptoms or risks identified at this time. Screenin:48 Abuse screen: Denies threats or abuse. Denies injuries from another. Nutritional rv screening: No deficits noted. Tuberculosis screening: No symptoms or risk factors identified. 21:49 Fall Risk None identified. rv Assessment: 21:47 General: Appears in no apparent distress. comfortable, Behavior is calm, cooperative. rv Pain: Denies pain. Neuro: Level of Consciousness is awake, alert, obeys commands, Oriented to person, place, time, situation. Cardiovascular: Patient's skin is warm and dry. Respiratory: Airway is patent. GI: No signs and/or symptoms were reported involving the gastrointestinal system. : No signs and/or symptoms were reported regarding the genitourinary system. EENT: No signs and/or symptoms were reported regarding the EENT system. Derm: Skin is intact. Musculoskeletal: No signs and/or symptoms reported regarding the musculoskeletal system. 22:00 Reassessment: patient refused the blood works. referred to Dr Roy, plan to repeat rv FSBS after 30 minutes. patient agreed. Vital Signs: 21:49 BP 119 / 75; Pulse 75; Resp 16; Temp 98.6; Pulse Ox 98% ; Weight 86.18 kg; Height 5 ft. rv 10 in. (177.80 cm); Pain 0/10; 21:49 Body Mass Index 27.26 (86.18 kg, 177.80 cm) rv ED Course: 21:32 Patient arrived in ED. ds1 21:43 Jameel Velasquez, RN is Primary Nurse. rv 21:47 Juan Roy MD is Attending Physician. tw4 21:48 Triage completed. rv 21:48 Patient has correct armband on for positive identification. Bed in low position. Call rv light in reach. Side rails up X 1. Pulse ox on. NIBP on. 21:50 Patient placed in the treatment room, on a stretcher, on pulse oximetry, Patient rv notified of wait time. 22:24 No provider procedures requiring assistance completed. Patient did not have IV access rv during this emergency room visit. Administered Medications: No medications were administered Outcome: 22:12 Discharge ordered by . tw4 22:25 Discharged to home ambulatory. rv 22:25 Condition: good 22:25 Discharge instructions given to patient, Instructed on discharge instructions, follow up and referral plans. Demonstrated understanding of instructions, follow-up care. 22:25 Patient left the ED. rv Signatures: Analilia Tovar ds1 Juan Roy MD MD tw4 Jameel Velasquez, NICKIE RN rv
[2019-04-13 22:35] VITALS: BP 119/75; TEMP 98.6; O2SAT 98
== END 2019-04-13 22:25 | disposition home or self-care (01) ==
LOC: ER 21:31
DX: E16.2 Hypoglycemia, unspecified (principal); F17.210 Nicotine dependence, cigarettes, uncomplicated; Z88.2 Allergy status to sulfonamides
CPT/HCPCS: 82947; 99283

== ENCOUNTER 2020-05-13 00:40 | Emergency (ER) | payer SELFPAY ==
[2020-05-13] MEDS ORDERED: FAMOTIDINE 20 MG TAB ONE (01:13)
[2020-05-13] MEDS ORDERED: LIDOCAINE VISCOUS 2% SOLN 15 ML UDC ONE (01:13)
[2020-05-13] MEDS ORDERED: MAGNES/ALUMIN/SIMET 30ML UCUP ONE (01:13)
--- NOTE | 2020-05-13 03:01 | EDPHYS ---
Physician Documentation [facility] Name: Al Verma Age: 34 yrs Sex: Female : 1985 Arrival Date: 05/13/2020 Time: 00:43 Bed 6 Private MD: ED Physician John Velez HPI: 05/13 00:53 This 34 yrs old Female presents to ER via Unassigned with complaints of rn Heartburn. 00:53 The patient presents with abdominal pain in the epigastric area. Onset: The rn symptoms/episode began/occurred yesterday. The symptoms do not radiate. Associated signs and symptoms: Pertinent negatives: nausea and vomiting, blood in stools, chest pain, fever, shortness of breath, vomiting blood. The symptoms are described as burning. Modifying factors: The symptoms are alleviated by nothing, the symptoms are aggravated by food. Severity of pain: At its worst the pain was moderate in the emergency department the pain is unchanged. The patient has experienced similar episodes in the past. The patient has not recently seen a physician. Reports hx of heartburn, multiple times in past and seen here with neg ct scan of abdomen and ultrasound, states symptoms resolve after GI cocktail. Reports had popeyes last night and burning pain since then. . 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 - Social history:: Smoking status: Patient reports the use of cigarette tobacco products, smokes one pack cigarettes per day. Patient/guardian denies using alcohol, street drugs. - Family history:: not pertinent. - Hospitalizations: : No recent hospitalization is reported. ROS: 00:53 Constitutional: Negative for fever, chills, and weight loss, Eyes: Negative for injury, rn pain, redness, and discharge, Neck: Negative for injury, pain, and swelling, Cardiovascular: Negative for chest pain, palpitations, and edema, Respiratory: Negative for shortness of breath, cough, wheezing, and pleuritic chest pain, Abdomen/GI: Negative for vomiting, diarrhea Back: Negative for injury and pain, MS/Extremity: Negative for injury and deformity, Skin: Negative for injury, rash, and discoloration, Neuro: Negative for headache, weakness, numbness, tingling, and seizure. Exam: 00:53 Constitutional: This is a well developed, well nourished patient who is awake, alert, rn and in no acute distress. Head/Face: Normocephalic, atraumatic. Cardiovascular: Regular rate and rhythm. No pulse deficits. Respiratory: No increased work of breathing, no retractions or nasal flaring. Abdomen/GI: soft, mild epigastric tenderness, no rebound, neg frederick Skin: Warm, dry MS/ Extremity: Pulses equal, no cyanosis. Neuro: Awake and alert, GCS 15 Vital Signs: 00:53 BP 114 / 67; Pulse 111; Resp 18; Temp 98.2; Pulse Ox 100% on R/A; Weight 65.77 kg (M); wh Height 5 ft. 9 in. (175.26 cm); 00:53 Body Mass Index 21.41 (65.77 kg, 175.26 cm) wh MDM: 00:44 Patient medically screened. rn 01:01 Differential diagnosis: gastritis, gastroesophageal reflux disease, non-specific abd rn pain, Peptic Ulcer Disease. Data reviewed: vital signs, nurses notes, and as a result, I will discharge patient. Counseling: I had a detailed discussion with the patient and/or guardian regarding: the historical points, exam findings, and any diagnostic results supporting the discharge/admit diagnosis, the need for outpatient follow up, to return to the emergency department if symptoms worsen or persist or if there are any questions or concerns that arise at home. Special discussion: I discussed with the patient/guardian in detail that at this point there is no indication for admission to the hospital. It is understood, however, that if the symptoms persist or worsen the patient needs to return immediately for re-evaluation. Based on the history and exam findings, there is no indication for further emergent testing or inpatient evaluation. I discussed with the patient/guardian the need to see the felt hooker for further evaluation of the symptoms. ED course: Reviewed old medical records indicating neg ct abdomen and neg u/s gallbladder. Identical presentations in past with improvement after GI cocktail. . 01:01 ED course: Had long conversation with patient regarding need to take daily antacid rn assessment and GI f/u. Has not been taking daily antacids as told in past. . Administered Medications: 01:02 Drug: GI Cocktail without - (Maalox Suspension 30 ml, Lidocaine Liquid 2 % 15 wh ml) Route: PO; :18 Follow up: Response: No adverse reaction; Marked relief of symptoms 01: Drug: Pepcid 20 mg Route: PO; :18 Follow up: Response: No adverse reaction Disposition: 05/13/20 01:04 Discharged to Home. Impression: Gastritis, unspecified, without bleeding. - Condition is Stable. - Discharge Instructions: Gastritis, Adult. - Medication Reconciliation Form, Thank You Letter, Antibiotic Education, Prescription Opioid Use form. - Follow up: Private Physician; When: As needed; Reason: Recheck today's complaints, Re-evaluation by your physician. - Problem is an acute exacerbation. - Symptoms have improved. Signatures: John Velez MD MD rn [place], Winsy Corrections: (The following items were deleted from the chart) 00:56 00:53 Constitutional: Negative for fever, chills, and weight loss, Eyes: Negative for rn injury, pain, redness, and discharge, Neck: Negative for injury, pain, and swelling, Cardiovascular: Negative for chest pain, palpitations, and edema, Respiratory: Negative for shortness of breath, cough, wheezing, and pleuritic chest pain, Abdomen/GI: Negative for vomiting, diarrhea Back: Negative for injury and pain, MS/Extremity: Negative for injury and deformity, Skin: Negative for injury, rash, and discoloration, Neuro: Negative for headache, weakness, numbness, tingling, and seizure, rn : 01:04 05/13/2020 01:04 Discharged to Home. Impression: Gastritis, unspecified, without wh bleeding. Condition is Stable. Forms are Medication Reconciliation Form, Thank You Letter, Antibiotic Education, Prescription Opioid Use. Follow up: Private Physician; When: As needed; Reason: Recheck today's complaints, Re-evaluation by your physician. Problem is an acute exacerbation. Symptoms have improved. rn
--- NOTE | 2020-05-13 03:01 | ER ---
Nurse's Notes [facility] Name: Al Verma Age: 34 yrs Sex: Female : 1985 Arrival Date: 05/13/2020 Time: 00:43 Bed 6 Private MD: Diagnosis: Gastritis, unspecified, without bleeding Presentation: 05/13 00:53 Chief complaint: Patient states: Epigastric pain that started 4 days ago. Coronavirus screen: Client denies travel out of the [place] in the last 14 days. At this time, the client does not indicate any symptoms associated with coronavirus-19. Ebola Screen: Patient negative for fever greater than or equal to 101.5 degrees Fahrenheit, and additional compatible Ebola Virus Disease symptoms Patient denies exposure to infectious person. Initial Sepsis Screen: Does the patient meet any 2 criteria? HR > 90 bpm. Does the patient have a suspected source of infection? Yes: Acute abdominal pain. Risk Assessment: Do you want to hurt yourself or someone else? Patient reports no desire to harm self or others. Onset of symptoms was May 13, 2020. 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 - Social history:: Smoking status: Patient reports the use of cigarette tobacco products, smokes one pack cigarettes per day. Patient/guardian denies using alcohol, street drugs. - Family history:: not pertinent. - Hospitalizations: : No recent hospitalization is reported. Screenin:56 Abuse screen: Denies threats or abuse. Denies injuries from another. Nutritional screening: No deficits noted. Tuberculosis screening: No symptoms or risk factors identified. Fall Risk None identified. Assessment: 00:55 General: Appears in no apparent distress. Behavior is calm, cooperative, appropriate for age. Pain: Complains of pain in epigastric area. Neuro: Level of Consciousness is awake, alert, obeys commands, Oriented to person, place, time, situation, Appropriate for age. Cardiovascular: Capillary refill < 3 seconds. Respiratory: Airway is patent Respiratory effort is even, unlabored, Respiratory pattern is regular, symmetrical. GI: Abdomen is flat, non-distended, Reports upper abdominal pain, indigestion. : No signs and/or symptoms were reported regarding the genitourinary system. EENT: No signs and/or symptoms were reported regarding the EENT system. Derm: Skin is intact, is healthy with good turgor, Skin is pink, warm \T\ dry. normal. Musculoskeletal: Circulation, motion, and sensation intact. 01:17 Reassessment: Patient is alert, oriented x 3, equal unlabored respirations, skin wh warm/dry/pink. Patient states feeling better. Patient states symptoms have improved. Vital Signs: 00:53 BP 114 / 67; Pulse 111; Resp 18; Temp 98.2; Pulse Ox 100% on R/A; Weight 65.77 kg (M); wh Height 5 ft. 9 in. (175.26 cm); 00:53 Body Mass Index 21.41 (65.77 kg, 175.26 cm) ED Course: 00:43 Patient arrived in ED. cl3 00:44 John Velez MD is Attending Physician. rn 00:53 Bijan Sandra is Primary Nurse. 00:54 Triage completed. 00:56 Patient has correct armband on for positive identification. Bed in low position. Call light in reach. Side rails up X 1. Pulse ox on. NIBP on. 00:57 Arm band placed on right wrist. 01:17 No provider procedures requiring assistance completed. Patient did not have IV access during this emergency room visit. Administered Medications: 01:02 Drug: GI Cocktail without - (Maalox Suspension 30 ml, Lidocaine Liquid 2 % 15 wh ml) Route: PO; 01:18 Follow up: Response: No adverse reaction; Marked relief of symptoms 01:02 Drug: Pepcid 20 mg Route: PO; 01:18 Follow up: Response: No adverse reaction Outcome: 01:04 Discharge ordered by . rn 01:17 Discharged to home ambulatory. 01:17 Condition: stable 01:17 Discharge instructions given to patient, Instructed on discharge instructions, follow up and referral plans. POC Demonstrated understanding of instructions, follow-up care, POC 01:18 Patient left the ED. Signatures: Velez, John, Bijan Gonzales MD, rn, Charde cl3
[2020-05-15 15:17] VITALS: BP 114/67; TEMP 98.2; O2SAT 100
== END 2020-05-13 01:18 | disposition home or self-care (01) ==
LOC: ER 00:40
DX: K29.70 Gastritis, unspecified, without bleeding (principal); F17.210 Nicotine dependence, cigarettes, uncomplicated; Z88.2 Allergy status to sulfonamides
CPT/HCPCS: 99283

== ENCOUNTER 2020-05-15 12:37 | Emergency (ER) | payer SELFPAY ==
--- NOTE | 2020-05-15 15:45 | ER ---
Nurse's Notes [facility] Name: Al Verma Age: 34 yrs Sex: Female : 1985 Arrival Date: 05/15/2020 Time: 12:38 Bed 14 Private MD: Diagnosis: Urinary tract infection, site not specified;Gas pain;Epigastric pain;Constipation Presentation: 05/15 13:27 Chief complaint: Patient states: "I came in about a few days ago with gastritis". Pt aa5 c/o pain to upper abdomen. Pt states "I know they diagnosed me with constipation as well but I haven't been able to have a normal bowel movement for about a week now". Pt denies nausea/vomiting/diarrhea. Coronavirus screen: Client denies travel out of the [place] in the last 14 days. At this time, the client does not indicate any symptoms associated with coronavirus-19. Ebola Screen: Patient negative for fever greater than or equal to 101.5 degrees Fahrenheit, and additional compatible Ebola Virus Disease symptoms. Initial Sepsis Screen: Does the patient meet any 2 criteria? No. Patient's initial sepsis screen is negative. Does the patient have a suspected source of infection? No. Patient's initial sepsis screen is negative. Risk Assessment: Do you want to hurt yourself or someone else? Patient reports no desire to harm self or others. Onset of symptoms was April 2020. 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 - Social history:: Smoking status: Patient reports the use of cigarette tobacco products, smokes one pack cigarettes per day. Screenin:53 Abuse screen: Denies threats or abuse. Denies injuries from another. Nutritional zb screening: No deficits noted. Fall Risk None identified. 16:53 Tuberculosis screening: No symptoms or risk factors identified. zb Assessment: 16:49 General: Appears in no apparent distress. comfortable, Behavior is calm, cooperative, zb appropriate for age, Reports fever for fatigue for. Pain: Complains of pain in left upper quadrant Pain does not radiate. Quality of pain is described as aching, Pain began 2-3 days ago. Is continuous. Neuro: Level of Consciousness is awake, alert, obeys commands, Oriented to person, place, time, situation. Cardiovascular: Capillary refill < 3 seconds in bilateral fingers Respiratory: Airway is patent Respiratory effort is even, unlabored, Respiratory pattern is regular, symmetrical. GI: Abdomen is distended, Bowel sounds present X 4 quads. Abdomen is tender to palpation in right upper quadrant and left upper quadrant Mass noted in right upper quadrant Reports bloating, constipation, gaseousness, Patient currently denies nausea, vomiting. : No signs and/or symptoms were reported regarding the genitourinary system. EENT: No signs and/or symptoms were reported regarding the EENT system. Derm: Skin is intact, is healthy with good turgor, Skin is dry, Skin is normal. Musculoskeletal: Circulation, motion, and sensation intact. Capillary refill < 3 seconds, in bilateral fingers. Range of motion: intact in all extremities. 17:49 Reassessment: Patient appears in no apparent distress at this time. Patient and/or zb family updated on plan of care and expected duration. Pain level reassessed. Patient is alert, oriented x 3, equal unlabored respirations, skin warm/dry/pink. pt still c/o to have bloating, states she is passing gas but no BM. 18:45 Reassessment: Patient appears in no apparent distress at this time. Patient and/or zb family updated on plan of care and expected duration. Pain level reassessed. Patient is alert, oriented x 3, equal unlabored respirations, skin warm/dry/pink. updated on POC. d/c instruction given. waited 15 after IM injection. Vital Signs: 13:28 BP 108 / 84; Pulse 106; Resp 18 S; Temp 98.1(O); Pulse Ox 99% on R/A; Weight 61.23 kg aa5 (R); Height 5 ft. 9 in. (175.26 cm) (R); Pain 8/10; 18:50 BP 114 / 64; Pulse 98; Resp 18; Pulse Ox 99% on R/A; zb 13:28 Body Mass Index 19.93 (61.23 kg, 175.26 cm) aa5 ED Course: 12:38 Patient arrived in ED. ag5 13:32 Triage completed. aa5 13:32 Arm band placed on. aa5 15:28 Sarah eFrguson FNP-C [facility]. snw 15:28 Shawn Blackwell MD is Attending Physician. snw 16:07 Jayne Benavides, NICKIE is Primary Nurse. zb 16:53 Patient has correct armband on for positive identification. Bed in low position. Call zb light in reach. Side rails up X 1. Adult w/ patient. Door closed. Noise minimized. 18:50 No provider procedures requiring assistance completed. zb 18:51 Patient did not have IV access during this emergency room visit. zb Administered Medications: 16:42 Drug: GI Cocktail without - (Maalox Suspension 30 ml, Lidocaine Liquid 2 % 15 zb ml) Route: PO; 17:58 Follow up: Response: No adverse reaction zb 16:42 Drug: ProTONIX 40 mg Route: PO; zb 17:58 Follow up: Response: No adverse reaction zb 16:42 Drug: Magnesium Citrate Liquid 300 ml Route: PO; zb 17:58 Follow up: Response: No adverse reaction zb 16:42 Drug: Simethicone 240 mg Route: PO; zb 17:58 Follow up: Response: No adverse reaction zb 18:35 Drug: Rocephin (cefTRIAXone) 1 grams Route: IM; Site: right gluteus; zb 18:49 Follow up: Response: No adverse reaction zb Outcome: 18:06 Discharge ordered by . snw 18:51 Discharged to home ambulatory, with family. zb 18:51 Condition: stable 18:51 Discharge instructions given to patient, family, Instructed on discharge instructions, follow up and referral plans. medication usage, Demonstrated understanding of instructions, follow-up care, medications, Prescriptions given X 2. 18:53 Patient left the ED. zb Signatures: Sarah Ferguson FNP-C FNP-Csnw Danielle Fuentes, RN RN aa5 Sukhdev Foster RN RN jl7 Gaskin, Ajare 5 Jayne Benavides RN RN zb Corrections: (The following items were deleted from the chart) 15:46 15:44 Patient's name was called from ER lobby. No response. Unable to locate patient. jlRedd Will disposition as left without being seen by a provider. jl7 16:54 15:44 Patient left the ED. jl7 matthew
[2020-05-15] MEDS ORDERED: SIMETHICONE 80 MG TAB ONE (16:30)
[2020-05-15] MEDS ORDERED: PANTOPRAZOLE 40MG TABLET PO ONE (16:30)
[2020-05-15] MEDS ORDERED: MAGNES/ALUMIN/SIMET 30ML UCUP ONE (16:30)
[2020-05-15] MEDS ORDERED: MAGNESIUM CITRATE 300 ML BOT ONE (16:31)
[2020-05-15] MEDS ORDERED: LIDOCAINE VISCOUS 2% SOLN 15 ML UDC ONE (16:31)
[2020-05-15 17:11] LABS: Urine Blood NEGATIVE (NEG); Urine Glucose NEGATIVE (NEG); Urine Protein TRACE (NEG); Urine pH 6.5 (5.0-7.0)
[2020-05-15 18:02] LABS: Urine Amorphous Sediment 2+ /HPF (NONE SEEN); Urine Bacteria >50 /HPF (<20); Urine Mucus 3+ /HPF (NONE SEEN); Urine RBC <5 /HPF (NONE SEEN)
--- NOTE | 2020-05-15 18:06 | EDPHYS ---
Physician Documentation [facility] Name: Al Verma Age: 34 yrs Sex: Female : 1985 Arrival Date: 05/15/2020 Time: 12:38 Bed 14 Private MD: ED Physician Shawn Blackwell HPI: 05/15 16:34 This 34 yrs old Female presents to ER via Ambulatory with complaints of snw Constipation, Abdominal Pain. 16:34 Onset: The symptoms/episode began/occurred gradually. Associated signs and symptoms: snw Pertinent positives: constipation. Modifying factors: the patient symptoms are aggravated by pt took 4 laxatives without results, ate large bowl of gumbo last pm. The patient has experienced a previous episode. The patient has been recently seen at the [facility] Emergency Department, last week, for similar complaints. 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 - Social history:: Smoking status: Patient reports the use of cigarette tobacco products, smokes one pack cigarettes per day. ROS: 16:33 Constitutional: Negative for fever, chills, and weight loss, Eyes: Negative for injury, snw pain, redness, and discharge, ENT: Negative for injury, pain, and discharge, Neck: Negative for injury, pain, and swelling, Cardiovascular: Negative for chest pain, palpitations, and edema, Respiratory: Negative for shortness of breath, cough, wheezing, and pleuritic chest pain, Back: Negative for injury and pain, : Negative for injury, bleeding, discharge, and swelling, MS/Extremity: Negative for injury and deformity, Skin: Negative for injury, rash, and discoloration, Neuro: Negative for headache, weakness, numbness, tingling, and seizure, Psych: Negative for depression, anxiety, suicide ideation, homicidal ideation, and hallucinations. 16:33 Abdomen/GI: Positive for abdominal pain, constipation, abdominal cramps, of the epigastric area, right upper quadrant and left upper quadrant. Exam: 16:33 Constitutional: This is a well developed, well nourished patient who is awake, alert, snw and in no acute distress. Head/Face: Normocephalic, atraumatic. Eyes: Pupils equal round and reactive to light, extra-ocular motions intact. Lids and lashes normal. Conjunctiva and sclera are non-icteric and not injected. Cornea within normal limits. Periorbital areas with no swelling, redness, or edema. ENT: Nares patent. No nasal discharge, no septal abnormalities noted. Tympanic membranes are normal and external auditory canals are clear. Oropharynx with no redness, swelling, or masses, exudates, or evidence of obstruction, uvula midline. Mucous membranes moist. Neck: Trachea midline, no thyromegaly or masses palpated, and no cervical lymphadenopathy. Supple, full range of motion without nuchal rigidity, or vertebral point tenderness. No Meningismus. Chest/axilla: Normal chest wall appearance and motion. Nontender with no deformity. No lesions are appreciated. Cardiovascular: Regular rate and rhythm with a normal S1 and S2. No gallops, murmurs, or rubs. Normal PMI, no JVD. No pulse deficits. Respiratory: Lungs have equal breath sounds bilaterally, clear to auscultation and percussion. No rales, rhonchi or wheezes noted. No increased work of breathing, no retractions or nasal flaring. Back: No spinal tenderness. No costovertebral tenderness. Full range of motion. Skin: Warm, dry with normal turgor. Normal color with no rashes, no lesions, and no evidence of cellulitis. MS/ Extremity: Pulses equal, no cyanosis. Neurovascular intact. Full, normal range of motion. Neuro: Awake and alert, GCS 15, oriented to person, place, time, and situation. Cranial nerves II-XII grossly intact. Motor strength 5/5 in all extremities. Sensory grossly intact. Cerebellar exam normal. Normal gait. Psych: Awake, alert, with orientation to person, place and time. Behavior, mood, and affect are within normal limits. 16:33 Abdomen/GI: Inspection: distension, that is mild, Bowel sounds: normal, Palpation: mild abdominal tenderness, moderate abdominal tenderness, in the epigastric area, right upper quadrant and left upper quadrant. Vital Signs: 13:28 BP 108 / 84; Pulse 106; Resp 18 S; Temp 98.1(O); Pulse Ox 99% on R/A; Weight 61.23 kg aa5 (R); Height 5 ft. 9 in. (175.26 cm) (R); Pain 8/10; 18:50 BP 114 / 64; Pulse 98; Resp 18; Pulse Ox 99% on R/A; zb 13:28 Body Mass Index 19.93 (61.23 kg, 175.26 cm) aa5 MDM: 15:54 Patient medically screened. snw 18:09 Data reviewed: vital signs, nurses notes. Data interpreted: Pulse oximetry: on room air snw is 99 %. Interpretation: normal. Counseling: I had a detailed discussion with the patient and/or guardian regarding: the historical points, exam findings, and any diagnostic results supporting the discharge/admit diagnosis, lab results, the need for outpatient follow up, to return to the emergency department if symptoms worsen or persist or if there are any questions or concerns that arise at home. Special discussion: Based on the history and exam findings, there is no indication for further emergent testing or inpatient evaluation. I discussed with the patient/guardian the need to see the primary care provider for further evaluation of the symptoms. 05/15 15:46 Order name: Urine Culture snw 05/15 15:46 Order name: Urine Microscopic Only; Complete Time: 18:04 snw 05/15 16:52 Order name: Urine Dipstick--Ancillary (enter results); Complete Time: 17:25 bd 05/15 16:52 Order name: Urine --Ancillary (enter results); Complete Time: 17:25 bd 05/15 15:46 Order name: Urine Test (obtain specimen); Complete Time: 16:43 snw 05/15 15:46 Order name: Urine Dipstick-Ancillary (obtain specimen); Complete Time: 16:43 snw 05/15 17:45 Order name: Misc. Order: Po - warmed prune, orange juice, and a pat of butter; Complete snw Time: 17:47 Administered Medications: 16:42 Drug: GI Cocktail without - (Maalox Suspension 30 ml, Lidocaine Liquid 2 % 15 zb ml) Route: PO; 17:58 Follow up: Response: No adverse reaction zb 16:42 Drug: ProTONIX 40 mg Route: PO; zb 17:58 Follow up: Response: No adverse reaction zb 16:42 Drug: Magnesium Citrate Liquid 300 ml Route: PO; zb 17:58 Follow up: Response: No adverse reaction zb 16:42 Drug: Simethicone 240 mg Route: PO; zb 17:58 Follow up: Response: No adverse reaction zb 18:35 Drug: Rocephin (cefTRIAXone) 1 grams Route: IM; Site: right gluteus; zb 18:49 Follow up: Response: No adverse reaction zb Disposition: 05/16 07:52 Co-signature as Attending Physician, Shawn Blackwell MD I agree with the assessment and kdr plan of care. Disposition: 05/15/20 18:06 Discharged to Home. Impression: Urinary tract infection, site not specified, Gas pain, Epigastric pain, Constipation. - Condition is Stable. - Discharge Instructions: Abdominal Pain, Adult, Constipation, Adult, Urinary Tract Infection, Adult, Rehydration, Adult. - Prescriptions for Gas- X - take 1 unit by ORAL route 2-3 times daily; 1 box. Augmentin 875- 125 mg Oral Tablet - take 1 tablet by ORAL route every 12 hours for 10 days; 20 tablet. - Medication Reconciliation Form, Thank You Letter, Antibiotic Education, Prescription Opioid Use form. - Follow up: Emergency Department; When: As needed; Reason: Worsening of condition. Follow up: Private Physician; When: 2 - 3 days; Reason: Recheck today's complaints, Continuance of care, Re-evaluation by your physician. Signatures: Dispatcher [employer] EDOK Shawn Blackwell MD MD kdr Waters, Shelly, CLOCK ASSEMBLER-C CLOCK ASSEMBLER-Csnw Danielle Fuentes, RN RN chay5 Sukhdev Foster RN RN jl7 Jayne Benavides RN RN zb Corrections: (The following items were deleted from the chart) 05/15 15:46 15:44 05/15/2020 15:44 Patient left the facility before being seen by provider. Reason jl7 stated they are leaving due to unknown. jl7 18:53 18:06 05/15/2020 18:06 Discharged to Home. Impression: Urinary tract infection, site zb not specified; Gas pain; Epigastric pain; Constipation. Condition is Stable. Forms are Medication Reconciliation Form, Thank You Letter, Antibiotic Education, Prescription Opioid Use. Follow up: Emergency Department; When: As needed; Reason: Worsening of condition. Follow up: Private Physician; When: 2 - 3 days; Reason: Recheck today's complaints, Continuance of care, Re-evaluation by your physician. rubia
[2020-05-15] MEDS ORDERED: LIDOCAINE 2% MPF 5 ML VIAL ONE (18:47)
[2020-05-15] MEDS ORDERED: CEFTRIAXONE 500 MG/VIAL ONE (18:48)
[2020-05-15] MEDS ORDERED: CEFTRIAXONE 1000 MG/VIAL ONE (18:51)
[2020-05-16 11:30] VITALS: TEMP 98.1; O2SAT 99
[2020-05-16 13:06] VITALS: BP 114/64
== END 2020-05-15 18:53 | disposition home or self-care (01) ==
LOC: ER 12:37
DX: K59.00 Constipation, unspecified (principal); N39.0 Urinary tract infection, site not specified; R14.1 Gas pain; F17.210 Nicotine dependence, cigarettes, uncomplicated; Z88.2 Allergy status to sulfonamides
CPT/HCPCS: 81003; 81015; 81025; 87086; 87088; 96372; 99283; J0696

== ENCOUNTER 2020-05-17 11:46 | Emergency (ER) | payer SELFPAY ==
[2020-05-17] MEDS ORDERED: NA CHLORIDE 0.9% 1,000 ML ONE ×3 (12:43→16:32)
[2020-05-17] MEDS ORDERED: ONDANSETRON 4 MG/2 ML VIAL ONE (12:43)
[2020-05-17 13:44] LABS: Absolute Lymphocytes (CBC) 1.2 K/uL (0.7-4.9); Basophils % 0.2 % (0-1.3); Hematocrit 28.7 % (36.0-45.0); Lymphocytes % 11.4 % (15.3-44.8); MPV 8.8 fL (7.6-11.3); RBC Red Blood Cell Count 3.24 M/uL (3.86-4.86)
[2020-05-17] MEDS ORDERED: FENTANYL CITR 100 MCG/2 ML ONE (13:45)
[2020-05-17 13:47] LABS: Protime INR 1.29
[2020-05-17 14:01] LABS: Potassium 3.7 mmol/L (3.5-5.1); Sodium Level 138 mmol/L (136-145)
[2020-05-17 14:02] LABS: ALT/SGPT 69 U/L (12-78); AST/SGOT 31 U/L (15-37); Albumin 2.6 g/dL (3.4-5.0); Alkaline Phosphatase 185 U/L (45-117); BUN Blood Urea Nitrogen 18 mg/dL (7-18); Bicarbonate 26 mmol/L (21-32); Bilirubin Direct 0.4 mg/dL (0-0.2); Bilirubin Total 0.7 mg/dL (0.2-1.0); Ferritin 165.1 ng/mL (8-388); Glucose Level 128 mg/dL (74-106); Lipase 44 U/L (73-393); Protein, Total 6.5 g/dL (6.4-8.2); Troponin (Emerg Dept Use Only) < 0.02 ng/mL (0.0-0.045)
--- NOTE | 2020-05-17 14:17 | RAD REPORT ---
EXAM DESCRIPTION: RAD - Chest Single View - 05/17/2020 1:45 pm CLINICAL HISTORY: Fever;Cough;Chest pain COMPARISON: None TECHNIQUE: AP portable chest image was obtained 05/17/2020 1:45 pm . FINDINGS: Lungs are clear. Mildly prominent interstitial pattern seen. No dense consolidation. Bilat eral pleural effusions are present with lung base atelectasis. No pneumothorax. No acute bony abnorma lity seen. No acute aortic findings suspected. IMPRESSION: Small bilateral pleural effusions with lung base atelectasis. Mild interstitial opacification. No definitive bacterial or COVID-19 pneumonia findings.
--- NOTE | 2020-05-17 16:04 | RAD REPORT ---
EXAM DESCRIPTION: CT - Chest For Pe Angio - 05/17/2020 3:34 pm CLINICAL HISTORY: Chest pain;Dyspnea COMPARISON: Chest Single View dated 05/17/2020 TECHNIQUE: Dynamically enhanced 3 mm thick images of the chest were obtained during administration o f approximately 150mL Isovue 370 IV contrast. Coronal and oblique MIP reconstruction images were gene rated and reviewed. Exam utilizes a protocol to evaluate the pulmonary arterial tree. All CT scans are performed using dose optimization technique as appropriate and may include automated exposure control or mA/KV adjustment according to patient size. FINDINGS: No pulmonary emboli are identified. The aorta as imaged shows no acute or suspicious finding. Large pericardial effusion is present up to 17 mm in thickness. No cardiomegaly. Questionable left ventricular hypertrophy noted. CT sensitivity is limited in myocardial hypertrophy assessment. Moderate bilateral pleural effusions are present. There is lung base atelectasis. Infiltrate changes in the superior aspect of each lower lobe not excluded. Minimal atelectasis in the lingula. No pneumo thorax. No pleural based mass. No mediastinal or hilar suspicious masses. No chest wall masses or abnormal axillary lymphadenopathy. IMPRESSION: No pulmonary emboli identified. Large pericardial effusion up to 17 mm in thickness with questionable left ventricular myocardial hyp ertrophy. Moderate bilateral pleural effusions with lung base atelectasis. Infiltrates of the superior aspect e ach lower lobe not excluded.
--- NOTE | 2020-05-17 16:59 | RAD REPORT ---
EXAM DESCRIPTION: US - Abdomen Exam Limited - 05/17/2020 4:17 pm CLINICAL HISTORY: ABD PAIN COMPARISON: Abdomen Pelvis W Contrast dated 02/06/2018; Chest For Pe Angio dated 05/17/2020 FINDINGS: Several small less than 5 millimeter sized mobile gallstones are present. Gallbladder wall is thickened and edematous. Small amount of pericholecystic fluid is present. No common duct stone or biliary tree dilatation identified. IMPRESSION: Several small less than 5 mm sized mobile gallstones are seen. Pericholecystic fluid and gallbladder wall thickening are present. Given the pericardial and pleural effusions, gallbladder wall changes may reflect response to systemic disease rather than acute aj cystitis.
[2020-05-17] MEDS ORDERED: NA CHLORIDE 0.9% 250 ML ONE (17:45)
[2020-05-17] MEDS ORDERED: VANCOMYCIN 1 GM/VIAL ONE (17:45)
[2020-05-17] MEDS ORDERED: WATER FOR INJ,STERILE 20 ML ONE (17:46)
--- NOTE | 2020-05-17 17:54 | EDPHYS ---
Physician Documentation [facility] Name: Al Verma Age: 34 yrs Sex: Female : 1985 Arrival Date: 05/17/2020 Time: 11:47 Bed 19 Private MD: ED Physician John Velez HPI: 05/17 16:16 This 34 yrs old Female presents to ER via Wheelchair with complaints of kb Fever, Shortness Of Breath, Chest Pain. 16:16 The patient or guardian reports cough, that is intermittent, described as mild, with no kb sputum, difficulty breathing, flu symptoms, low-grade fever. Onset: The symptoms/episode began/occurred 8 day(s) ago. Severity of symptoms: At their worst the symptoms were moderate, in the emergency department the symptoms are unchanged. Modifying factors: The symptoms are alleviated by nothing, the symptoms are aggravated by nothing. Associated signs and symptoms: Pertinent positives: chest pain, fever, nausea, vomiting, Pertinent negatives: diarrhea, ear ache, rhinorrhea, sore throat. The patient has not experienced similar symptoms in the past. The patient has been recently seen at the [facility] Emergency Department, this week, for unrelated complaints, seen for constipation last week. Pt reports cough, shortness of breath, chest tightness, fever/chills, malaise for 8 days. Nausea and vomiting started today. Reports other symptoms have gotten worse. Historical: - Allergies: 12:03 Sulfa (Sulfonamide Antibiotics); sv - PMHx: 12:03 Bipolar disorder; sv - PSHx: 12:03 Tonsillectomy; sv - Immunization history:: Flu vaccine is not up to date. - Social history:: Smoking status: Patient reports the use of cigarette tobacco products, smokes one pack cigarettes per day. ROS: 16:16 Back: Negative for injury and pain, MS/Extremity: Negative for injury and deformity, kb Skin: Negative for injury, rash, and discoloration. 16:16 Constitutional: Positive for chills, fever, malaise. 16:16 Cardiovascular: Positive for chest pain. 16:16 Respiratory: Positive for shortness of breath. 16:16 Abdomen/GI: Positive for nausea and vomiting. 16:16 Neuro: Positive for headache. Exam: 16:41 Head/Face: Normocephalic, atraumatic. Chest/axilla: Normal chest wall appearance and kb motion. Nontender with no deformity. No lesions are appreciated. Respiratory: Lungs have equal breath sounds bilaterally, clear to auscultation and percussion. No rales, rhonchi or wheezes noted. No increased work of breathing, no retractions or nasal flaring. Abdomen/GI: Soft, non-tender, with normal bowel sounds. No distension or tympany. No guarding or rebound. No evidence of tenderness throughout. Skin: Warm, dry with normal turgor. Normal color with no rashes, no lesions, and no evidence of cellulitis. MS/ Extremity: Pulses equal, no cyanosis. Neurovascular intact. Full, normal range of motion. Neuro: Awake and alert, GCS 15, oriented to person, place, time, and situation. Cranial nerves II-XII grossly intact. Motor strength 5/5 in all extremities. Sensory grossly intact. Cerebellar exam normal. Normal gait. 16:41 Cardiovascular: Rate: tachycardic, actual rate is 115 bpm, Rhythm: regular, Pulses: no pulse deficits are appreciated, Heart sounds: normal, murmur, not appreciated, S1, S2. 16:41 Constitutional: The patient appears alert, awake, uncomfortable. kb Vital Signs: 12:01 Weight 65.77 kg; Height 5 ft. 9 in. (175.26 cm); sv 12:05 BP 100 / 63; Pulse 114; Resp 18; Temp 98.5; Pulse Ox 98% on R/A; Pain 8/10; ll1 13:33 BP 96 / 73; Pulse 112; Resp 18; ll1 14:00 BP 85 / 56; Pulse 115; Resp 18; Pulse Ox 98% on R/A; vg1 14:06 BP 76 / 62; Pulse 113; Resp 18; Pulse Ox 98% on R/A; vg1 14:15 BP 88 / 68; Pulse 113; Resp 18; Pulse Ox 95% on R/A; vg1 14:30 BP 96 / 61; Pulse 115; Resp 18; Pulse Ox 96% on R/A; vg1 15:00 BP 85 / 57; Pulse 113; Resp 18; Pulse Ox 97% on R/A; vg1 15:15 BP 98 / 68; Pulse 111; Resp 18; Pulse Ox 98% on R/A; vg1 16:00 BP 95 / 59; Pulse 110; Resp 20; Pulse Ox 98% on R/A; vg1 16:15 BP 81 / 56; Pulse 116; Resp 20; Pulse Ox 98% on R/A; vg1 16:30 BP 83 / 65; Pulse 113; Resp 20; Pulse Ox 98% on R/A; vg1 16:42 BP 96 / 69; kb 16:45 BP 95 / 60; Pulse 112; Resp 22; Pulse Ox 95% on R/A; vg1 17:20 BP 100 / 66; Pulse 113; Resp 22; Pulse Ox 95% on R/A; vg1 17:30 BP 92 / 65; Pulse 112; Resp 24; Pulse Ox 96% on R/A; vg1 17:45 BP 88 / 62; Pulse 109; Resp 24; Pulse Ox 98% on R/A; vg1 18:00 BP 91 / 65; Pulse 111; Resp 24; Pulse Ox 94% on R/A; vg1 18:15 BP 87 / 59; Pulse 113; Resp 24; Pulse Ox 98% on R/A; vg1 18:30 BP 89 / 77; Pulse 115; Resp 24; Pulse Ox 95% on R/A; vg1 18:45 BP 90 / 67; Pulse 110; Resp 28; Pulse Ox 97% on R/A; vg1 12:01 Body Mass Index 21.41 (65.77 kg, 175.26 cm) sv Procedures: 13:25 Peripheral line: by aseptic technique a peripheral line was placed in the right kb external jugular vein. 15:04 Peripheral line: U/S guided IV placed left bicep region by Dr. Velez, single stick, 22g rn diffusics. 18:51 Central Line: the site was prepped with Betadine, in sterile fashion, a triple lumen cp catheter was inserted, in the right femoral vein, in 1 attempts. placement was verified, by blood return, the site was dressed with using sterile technique, the patient tolerated the procedure, well. MDM: 11:53 Patient medically screened. kb 15:00 Data reviewed: vital signs, nurses notes. Data interpreted: Pulse oximetry: on room air kb is 96 %. Interpretation: normal. 16:19 Counseling: I had a detailed discussion with the patient and/or guardian regarding: the kb historical points, exam findings, and any diagnostic results supporting the discharge/admit diagnosis, lab results, radiology results, the need to transfer to another facility, for higher level of care, [facility] does not immediately have the required specialist. 17:07 ED course: [facility] at [facility]. Transfer initiated to [facility]. I spoke to thoracic surgeon. Awaiting callback about bed availability. 17:52 ED course: Pt accepted by [facility] at [facility] location to the SICU. 05/17 12:07 Order name: Blood Culture Adult (2) kb 05/17 12:07 Order name: BMP; Complete Time: 14:09 kb 05/17 12:07 Order name: C-Reactive Protein; Complete Time: 14:09 kb 05/17 12:07 Order name: CBC with Diff; Complete Time: 13:49 kb 05/17 12:07 Order name: D-Dimer; Complete Time: 13:52 kb 05/17 12:07 Order name: Ferritin; Complete Time: 14:09 kb 05/17 12:07 Order name: Flu; Complete Time: 12:56 kb 05/17 12:07 Order name: Lactate; Complete Time: 14:09 kb 05/17 12:07 Order name: LFT's; Complete Time: 14:09 kb 05/17 12:07 Order name: Lipase; Complete Time: 14:09 kb 05/17 12:07 Order name: Procalcitonin; Complete Time: 14:09 kb 05/17 12:07 Order name: PT-INR; Complete Time: 13:49 kb 05/17 12:07 Order name: Ptt, Activated; Complete Time: 13:49 kb 05/17 12:07 Order name: Strep; Complete Time: 12:56 kb 05/17 12:07 Order name: Troponin (emerg Dept Use Only); Complete Time: 14:09 kb 05/17 12:07 Order name: CXR XRAY; Complete Time: 14:18 kb 05/17 12:07 Order name: EKG; Complete Time: 12:09 kb 05/17 12:49 Order name: Throat Culture EDMS 05/17 15:01 Order name: CT Chest For PE Angio; Complete Time: 16:07 kb 05/17 15:10 Order name: US Abdomen Limited; Complete Time: 17:03 kb 05/17 17:05 Order name: SARS-COV-2 RT PCR; Complete Time: 17:06 EDMS 05/17 12:07 Order name: Cardiac monitoring; Complete Time: 12:10 kb 05/17 12:07 Order name: Droplet/Contact Precautions; Complete Time: 12:10 kb 05/17 12:07 Order name: EKG - Nurse/Tech; Complete Time: 13:32 kb 05/17 12:07 Order name: IV Start; Complete Time: 12:10 kb 05/17 12:07 Order name: Labs collected and sent; Complete Time: 12:10 kb 05/17 12:07 Order name: O2 Per Protocol; Complete Time: 12:09 kb 05/17 12:07 Order name: O2 Sat Monitoring; Complete Time: 12:09 kb Administered Medications: 13:31 Drug: Zofran (Ondansetron) 4 mg Route: IVP; Site: Other; ll1 13:50 Follow up: Response: Nausea is decreased vg1 13:32 Drug: NS 0.9% 1000 ml Route: IV; Rate: 1000 ml; Site: Other; ll1 16:15 Follow up: IV Status: Completed infusion; IV Intake: 1000ml vg1 13:40 Drug: fentaNYL (PF) 25 mcg Route: IVP; Site: Other; ll1 14:15 Follow up: Response: Pain is unchanged, physician notified vg1 14:35 Drug: NS 0.9% 1000 ml Route: IV; Rate: 1000 ml; Site: right jugular; vg1 15:35 Follow up: IV Status: Completed infusion; IV Intake: 1000ml vg1 16:29 Drug: NS 0.9% 1000 ml Route: IV; Rate: 1000 ml; Site: right jugular; vg1 17:30 Follow up: IV Status: Completed infusion; IV Intake: 1000ml vg1 17:49 Drug: vancoMYCIN 1 grams Route: IVPB; Infused Over: 2 hrs; Site: right jugular; vg1 19:17 Follow up: IV Status: Infusion continued upon transfer vg1 Disposition: 05/18 07:33 Co-signature as Attending Physician, John Velez MD. rn Disposition: 05/17/20 17:[address] [facility]. Diagnosis are Pericardial effusion (noninflammatory), Hypotension. - Reason for transfer: Higher level of care. - Accepting physician is Kaden Iqbal. - Condition is Serious. - Problem is new. - Symptoms are unchanged. Signatures: Dispatcher [employer] EDAR Ashley Snowden, JHON-C PIPE COVERING MOLDER-CkBelén Hwang, RN RN John Moses MD MD rn Page, Corey, PA PA cp Gardose, Michele, RN RN mg2 Judy Hernandez, RN RN vg1 Nam Viera, RN RN ll1 Corrections: (The following items were deleted from the chart) 05/17 12:10 12:07 Document PUI# ordered. kb ll1 12:10 12:07 Notify [facility] [phone]/ ordered. kb ll1 16:17 12:09 CORONAVIRUS+MR.LAB.BRZ ordered. [facility] EDAR 17:58 17:53 05/17/2020 17:[address] [facility]. Diagnosis is kb Pericardial effusion (noninflammatory). Reason for transfer: Higher level of care. Accepting physician is Kaden Iqbal. Condition is Serious. Problem is new. Symptoms are unchanged. 19:12 17:58 05/17/2020 17:[address] [facility]. Diagnosis is mg2 Pericardial effusion (noninflammatory); Hypotension. Reason for transfer: Higher level of care. Accepting physician is Kaden Iqbal. Condition is Serious. Problem is new. Symptoms are unchanged. kb
--- NOTE | 2020-05-17 17:54 | ER ---
Nurse's Notes [facility] Name: Al Verma Age: 34 yrs Sex: Female : 1985 Arrival Date: 05/17/2020 Time: 11:47 Bed 19 Private MD: Diagnosis: Pericardial effusion (noninflammatory);Hypotension Presentation: 05/17 12:01 Chief complaint: Patient states: SOB, chest tightness, subjective fever, nausea x 8 sv days. Was seen here a few days ago for constipation and given meds to help and they have. Ibuprofen 4 tabs taken an hr ago. Coronavirus screen: Client denies travel out of the [place] in the last 14 days. Client presents with at least one sign or symptom that may indicate coronavirus-19. Standard/surgical mask placed on the client. Provider contacted for isolation considerations. Ebola Screen: No symptoms or risks identified at this time. Risk Assessment: Do you want to hurt yourself or someone else? Patient reports no desire to harm self or others. Onset of symptoms was May 09, 2020. 12:01 Method Of Arrival: Wheelchair sv 12:01 Acuity: KRIS 3 sv 12:06 Initial Sepsis Screen: Does the patient meet any 2 criteria? HR > 90 bpm. No. Patient's ll1 initial sepsis screen is negative. Does the patient have a suspected source of infection? Yes: Productive cough/pneumonia. 12:09 Acuity: KRIS 2 sv Triage Assessment: 12:08 Respiratory: Onset: The symptoms/episode began/occurred 8 days ago, the patient has ll1 mild shortness of breath. 12:08 General: Appears ill, Behavior is calm, cooperative, appropriate for age. ll1 Historical: - Allergies: 12:03 Sulfa (Sulfonamide Antibiotics); sv - PMHx: 12:03 Bipolar disorder; sv - PSHx: 12:03 Tonsillectomy; sv - Immunization history:: Flu vaccine is not up to date. - Social history:: Smoking status: Patient reports the use of cigarette tobacco products, smokes one pack cigarettes per day. Screenin:05 Abuse screen: Denies threats or abuse. Nutritional screening: No deficits noted. ll1 Tuberculosis screening: No symptoms or risk factors identified. 13:42 Fall Risk IV access (20 points). Gait- Weak (10 pts.). Total Ma Fall Scale indicates ll1 Low Risk Score (25-44 pts). Fall prevention measures have been instituted. Side Rails Up X 2 Placed close to Nursing Station Frequent Obs/Assesments occuring Family Present and informed to notify staff if they need to leave bedside As available Patient and Family Educated on Fall Prevention Program and strategies. Assessment: 12:06 Pain: Complains of pain in chest Pain currently is 8 out of 10 on a pain scale. Quality ll1 of pain is described as aching, Is continuous. Cardiovascular: Reports chest pain, Heart tones S1 S2 Capillary refill < 3 seconds Clubbing of nail beds is absent Patient's skin is warm and dry. Pulses are all present. Chest pain is described as vague, is located in anterior chest wall. Cardiovascular: Rhythm is sinus tachycardia. Respiratory: Airway is patent Trachea midline Respiratory effort is even, unlabored. GI: Abdomen is flat, Bowel sounds present X 4 quads. Abd is soft and non tender X 4 quads. Reports nausea, vomiting. :. Musculoskeletal: Circulation, motion, and sensation intact. Capillary refill < 3 seconds, Range of motion: intact in all extremities, Reports weakness in generalized weakness. 12:06 Respiratory: Breath sounds are clear bilaterally. ll1 13:05 Reassessment: No changes from previously documented assessment. Patient and/or family ll1 updated on plan of care and expected duration. Pain level reassessed. 14:07 Reassessment: Provider notified of patients blood pressure. vg1 14:07 Reassessment: V/O received to administer a bolus of NS and to position patient in vg1 Trendelenburg. 15:00 Reassessment: Dr Velez at the bedside attempting to place an IV for CT. sv 16:02 Reassessment: No changes from previously documented assessment. Patient and/or family vg1 updated on plan of care and expected duration. Pain level reassessed. Patient is alert, oriented x 3, equal unlabored respirations, skin warm/dry/pink. 17:00 Reassessment: No changes from previously documented assessment. Patient and/or family vg1 updated on plan of care and expected duration. Pain level reassessed. Patient is alert, oriented x 3, equal unlabored respirations, skin warm/dry/pink. 17:24 Reassessment: Patient reports dry mouth. Applied lemon glycerin. vg1 18:30 Reassessment: Attempted to call report to [facility], but nurse sv unavailable at this time. 18:52 Reassessment: Attempted to call report, nurse unavailable. sv 18:55 Reassessment: Gave report to [facility]. vg1 Vital Signs: 12:01 Weight 65.77 kg; Height 5 ft. 9 in. (175.26 cm); sv 12:05 BP 100 / 63; Pulse 114; Resp 18; Temp 98.5; Pulse Ox 98% on R/A; Pain 8/10; ll1 13:33 BP 96 / 73; Pulse 112; Resp 18; ll1 14:00 BP 85 / 56; Pulse 115; Resp 18; Pulse Ox 98% on R/A; vg1 14:06 BP 76 / 62; Pulse 113; Resp 18; Pulse Ox 98% on R/A; vg1 14:15 BP 88 / 68; Pulse 113; Resp 18; Pulse Ox 95% on R/A; vg1 14:30 BP 96 / 61; Pulse 115; Resp 18; Pulse Ox 96% on R/A; vg1 15:00 BP 85 / 57; Pulse 113; Resp 18; Pulse Ox 97% on R/A; vg1 15:15 BP 98 / 68; Pulse 111; Resp 18; Pulse Ox 98% on R/A; vg1 16:00 BP 95 / 59; Pulse 110; Resp 20; Pulse Ox 98% on R/A; vg1 16:15 BP 81 / 56; Pulse 116; Resp 20; Pulse Ox 98% on R/A; vg1 16:30 BP 83 / 65; Pulse 113; Resp 20; Pulse Ox 98% on R/A; vg1 16:42 BP 96 / 69; kb 16:45 BP 95 / 60; Pulse 112; Resp 22; Pulse Ox 95% on R/A; vg1 17:20 BP 100 / 66; Pulse 113; Resp 22; Pulse Ox 95% on R/A; vg1 17:30 BP 92 / 65; Pulse 112; Resp 24; Pulse Ox 96% on R/A; vg1 17:45 BP 88 / 62; Pulse 109; Resp 24; Pulse Ox 98% on R/A; vg1 18:00 BP 91 / 65; Pulse 111; Resp 24; Pulse Ox 94% on R/A; vg1 18:15 BP 87 / 59; Pulse 113; Resp 24; Pulse Ox 98% on R/A; vg1 18:30 BP 89 / 77; Pulse 115; Resp 24; Pulse Ox 95% on R/A; vg1 18:45 BP 90 / 67; Pulse 110; Resp 28; Pulse Ox 97% on R/A; vg1 12:01 Body Mass Index 21.41 (65.77 kg, 175.26 cm) ED Course: 11:47 Patient arrived in ED. ds1 11:50 Ashley Snowden FNP-C is PHCP. kb 11:50 John Velez MD is Attending Physician. kb 12:00 Arm band placed on. sv 12:03 Triage completed. sv 12:05 Nam Viera, RN is Primary Nurse. ll1 12:08 Patient has correct armband on for positive identification. Bed in low position. Call ll1 light in reach. Side rails up X 1. Pulse ox on. NIBP on. 13:00 Missed attempt(s): 22 gauge in right antecubital area. Bleeding controlled, band aid ll1 applied, catheter tip intact. 13:15 Missed attempt(s): 24 gauge in left upper arm. Bleeding controlled, band aid applied, ll1 catheter tip intact. 13:20 Inserted saline lock: 18 gauge in right EJ, using aseptic technique. Blood collected. ll1 13:45 CXR XRAY In Process Unspecified. EDMS 14:16 Primary Nurse role handed off by Nam Viera, RN vg1 14:16 Judy Hernandez, RN is Primary Nurse. vg1 14:25 Missed attempt(s): 20 gauge in right antecubital area. Bleeding controlled, band aid sv applied, catheter tip intact. 14:35 Missed attempt(s): 20 gauge in right upper arm. Bleeding controlled, band aid applied, sv catheter tip intact. 15:00 Accessed peripheral vein via ultrasound, utilizing dynamic ultrasound technique done by sv Dr Velez Clean \T\ dry. Dressing intact. Good blood return. Flushes easily. [address] diffusics. 15:34 CT Chest For PE Angio In Process Unspecified. EDMS 15:53 US at bedside. vg1 16:17 US Abdomen Limited In Process Unspecified. EDMS 16:28 initiated a transfer with AMPARO Whitfield from the [facility]/ Per AMPARO they are eb at ICU and PCU capacity and have to deny the patient in transfer. 16:31 initiated a transfer with Lolita from the [facility]. eb 17:49 administrative approval given by Shanthi Garcia/ patient has been accepted to [facility]/ Report to be called to [phone]/ Dr. Iqbal has accepted the patient in transfer. 18:15 Assisted provider with central line placement. Set up central line tray. vg1 19:07 Patient transferred, IV remains in place. intact. sv Administered Medications: 13:31 Drug: Zofran (Ondansetron) 4 mg Route: IVP; Site: Other; ll1 13:50 Follow up: Response: Nausea is decreased vg1 13:32 Drug: NS 0.9% 1000 ml Route: IV; Rate: 1000 ml; Site: Other; ll1 16:15 Follow up: IV Status: Completed infusion; IV Intake: 1000ml vg1 13:40 Drug: fentaNYL (PF) 25 mcg Route: IVP; Site: Other; ll1 14:15 Follow up: Response: Pain is unchanged, physician notified vg1 14:35 Drug: NS 0.9% 1000 ml Route: IV; Rate: 1000 ml; Site: right jugular; vg1 15:35 Follow up: IV Status: Completed infusion; IV Intake: 1000ml vg1 16:29 Drug: NS 0.9% 1000 ml Route: IV; Rate: 1000 ml; Site: right jugular; vg1 17:30 Follow up: IV Status: Completed infusion; IV Intake: 1000ml vg1 17:49 Drug: vancoMYCIN 1 grams Route: IVPB; Infused Over: 2 hrs; Site: right jugular; vg1 19:17 Follow up: IV Status: Infusion continued upon transfer vg1 Intake: 15:35 IV: 1000ml; Total: 1000ml. vg1 16:15 IV: 1000ml; Total: 2000ml. vg1 17:30 IV: 1000ml; Total: 3000ml. vg1 Outcome: 17:53 ER care complete, transfer ordered by . kb 19:08 Transferred by ground EMS Transfer form completed. X-rays sent w/ patient. Note: sv Report given to Britney FU at [facility] 19:08 Condition: stable 19:08 Instructed on the need for transfer. 19:12 Patient left the ED. mg2 Signatures: Dispatcher [employer] EDAshley Nunez, SCREW MACHINE SET UP OPERATOR-C SCREW MACHINE SET UP OPERATOR-Ckb Belén Daly, RN RN sv Analilia Tovar ds1 Cyndi Finn Michele, RN RN mg2 Judy Hernandez RN RN 1 Nam Viera RN RN ll1 Corrections: (The following items were deleted from the chart) 13:43 13:42 Respiratory: Breath sounds are clear bilaterally. ll1 ll1
--- NOTE | 2020-05-19 07:37 | EKG ---
Test Date: 2020-05-17 Test Time: 12:55:41 Counter Intelligence Technician: SINGH MEASUREMENT RESULTS: Intervals: Rate: 0 MA: QRSD: 0 QT: 0 QTc: 0 [place]: P: MA: QRS: 0 T: 0 INTERPRETIVE STATEMENTS: No QRS complexes found, no ECG analysis possible No previous ECG available for comparison Electronically Signed On 05-19-20 07:34:41 RN SURGICAL PCU by Shawn Anderson
[2020-05-20 02:48] VITALS: TEMP 98.5
[2020-05-20 03:28] VITALS: BP 90/67; O2SAT 97
== END 2020-05-17 19:12 | disposition short-term general hospital (02) ==
LOC: ER 11:46
PROC: 05HP33Z Insertion of Infusion Device into Right External Jugular Vein, Percutaneous Approach (ICD-10-PCS; principal; 2020-05-17)
PROC: 06HM33Z Insertion of Infusion Device into Right Femoral Vein, Percutaneous Approach (ICD-10-PCS; 2020-05-17)
DX: I31.3 Pericardial effusion (noninflammatory) (principal); I95.9 Hypotension, unspecified; Z20.828 Contact with and (suspected) exposure to other viral communicable diseases; F17.210 Nicotine dependence, cigarettes, uncomplicated; Z88.2 Allergy status to sulfonamides
CPT/HCPCS: 36415; 71045; 71275; 76705; 80048; 80076; 82728; 83605; 83690; 84145; 84484; 85025; 85379; 85610; 85730; 86140; 87040; 87070; 87081; 87804; 93005; 96361; 96365; 96375; 99285; J2405; J3010; J3370; J7030; J7050; Q9967; U0003